=== PATIENT | male | born 1965 | race Caucasian/White ===

== ENCOUNTER → 2017-10-09 09:24 | Outpatient (CLI) | payer OTHER, SELFPAY ==
[2017-10-09 12:14] LABS: Hemoglobin A1c 8.3 % (4.2-6.3)
[2017-10-09 12:17] LABS: Cholesterol 164 mg/dL (200); Glucose 186 mg/dL (74-106); High Density Lipoprotein 34 mg/dL; Triglycerides 255 mg/dL; Very Low Density Lipoprotein 51 mg/dL (5-40)
== END ==
PROVIDERS: Family Provider Family Medicine; PCP Family Medicine; Visit Provider Family Medicine
DX: E11.9 Type 2 diabetes mellitus without complications (principal); E78.5 Hyperlipidemia, unspecified
CPT/HCPCS: 36415; 80061; 82947; 83036

== ENCOUNTER → 2018-10-15 09:10 | Outpatient (CLI) | payer OTHER, SELFPAY ==
[2017-01-03 11:29] VITALS: BMI 31.9
[2018-10-15 10:24] LABS: Hemoglobin A1c 9.6 % (4.2-6.3)
[2018-10-15 10:33] LABS: Anion Gap 10 (5-15); BUN 14 mg/dL (7-18); BUN/Creat Ratio 14.9 RATIO (10-20); Calcium,Total 8.5 mg/dL (8.5-10.1); Chloride 104 mmol/L (98-107); Cholesterol 179 mg/dL (200); Creatinine, Serum 0.94 mg/dL (0.70-1.30); EST Glomerular Filtration Rate 89 mL/min (>60); Est Glom Filt Rate - Afr Amer 107 mL/min (>60); Glucose 245 mg/dL (74-106); High Density Lipoprotein 35 mg/dL; PSA,Total - Annual Screen 0.18 ng/mL (0.00-4.00); Potassium 3.9 mmol/L (3.5-5.1); Sodium Level 138 mmol/L (136-145); Triglycerides 225 mg/dL; Very Low Density Lipoprotein 45 mg/dL (5-40)
== END ==
PROVIDERS: Family Provider Family Medicine; PCP Family Medicine; Referring Provider Family Medicine; Visit Provider Family Medicine
DX: E78.5 Hyperlipidemia, unspecified (principal); Z12.5 Encounter for screening for malignant neoplasm of prostate; E11.9 Type 2 diabetes mellitus without complications
CPT/HCPCS: 36415; 80048; 80061; 83036; 84153; G0103

== ENCOUNTER → 2019-11-16 09:31 | Outpatient (CLI) | payer OTHER, SELFPAY ==
[2017-01-03 11:29] VITALS: BMI 31.9
[2019-11-16 12:47] LABS: ALB/GLOB Ratio 0.9 RATIO (0.9-2.4); AST(SGOT) 40 U/L (15-37); Alanine Aminotransfer ALT/SGPT 79 U/L (16-61); Albumin, Serum 3.8 g/dL (3.2-5.0); Alkaline Phosphatase 59 U/L (45-117); Anion Gap 7 (5-15); BUN 15 mg/dL (7-18); Calcium,Total 8.8 mg/dL (8.5-10.1); Chloride 105 mmol/L (98-107); Cholesterol 195 mg/dL (200); EST Glomerular Filtration Rate 82 mL/min (>60); Est Glom Filt Rate - Afr Amer 100 mL/min (>60); Globulin 4.3 g/dL (2.2-4.2); Glucose 246 mg/dL (74-106); High Density Lipoprotein 33 mg/dL; Protein, Total 8.1 g/dL (6.4-8.2); Sodium Level 138 mmol/L (136-145); Triglycerides 229 mg/dL; Very Low Density Lipoprotein 46 mg/dL (5-40)
== END ==
PROVIDERS: PCP Family Medicine; Referring Provider Family Medicine; Visit Provider Family Medicine
DX: E11.9 Type 2 diabetes mellitus without complications (principal)
CPT/HCPCS: 36415; 80053; 80061; 82043; 82570

== ENCOUNTER → 2020-06-21 16:31 | Outpatient (CLI) | payer OTHER, SELFPAY ==
[2017-01-03 11:29] VITALS: BMI 31.9
== END ==
PROVIDERS: PCP Family Medicine; Referring Provider Family Medicine; Visit Provider Family Medicine
DX: B34.9 Viral infection, unspecified (principal)
CPT/HCPCS: 87635; U0003

== ENCOUNTER 2020-06-25 12:19 | Inpatient (IN) | payer OTHER, SELFPAY ==
[2020-06-25] VITALS (15 sets, daily range): BP systolic 111–140; BP diastolic 69–80; PULSE 75–106; RESP 16–21; TEMP 36.8–37.2; O2SAT 87–94; BMI 33.2; BMI 30.6
--- NOTE | 2020-06-25 12:28 | RAD_ITS ---
STUDY: X-RAY CHEST REASON FOR EXAM: Male, 55 years old. Cough, SOB -- tested positive for COVID -- illness x 1 week 2 days TECHNIQUE: AP upright portable view. COMPARISON: None. FINDINGS: Mild pulmonary hypoinflation. Minimal interstitial infiltrates in both lungs, right more than left. There is no demonstrated pleural abnormality. Normal size heart. Normal mediastinum and nehemias. Normal visualized pulmonary arteries. Normal visualized aortic arch and descending thoracic aorta. Normal visualized thoracic spine. Normal visualized ribs, clavicles, and shoulders. There is no demonstrated abnormality of the visualized soft tissue structures of the upper abdomen. RAD/Chest 1 View (Portable) IMPRESSION: Interstitial pneumonitis in both lungs are nonspecific. They are suspicious for viral pneumonia including Covid-19. Electronically Signed: Eduardo Blankenship MD at 13:10 EST , Service support ,
--- NOTE | 2020-06-25 12:28 | EKG12_ITS ---
Test Reason : SOB Blood Pressure : / mmHG Vent. Rate : 106 BPM Atrial Rate : 106 BPM P-R Int : 144 ms QRS Dur : 086 ms QT Int : 340 ms P-R-T Axes : 022 -33 005 degrees QTc Int : 451 ms Sinus tachycardia Possible Left atrial enlargement Left axis deviation Abnormal ECG Confirmed by GABY WINCHESTER, DEMOND ([id number]), slot editor LUIS CARLOS TANNER ([id number]) on 06/26/2020 2:02:33 PM Referred By: Confirmed By:DEMOND GRIFFIN MD
--- NOTE | 2020-06-25 12:30 | ED.VIS.GEN ---
History of Present Illness Chief Complaint: Shortness of Breath Detail of Chief Complaint: And feeling terrible Informant: Patient Onset: Days Context: Sudden Onset Timing: Continuous Quality: Upper respiratory symptoms, decreased appetite, malaise, myalgias Location: Generalized Current Severity: Moderate Maximum Severity: Severe Worsened by: Dyspnea on exertion, positive Covid test Relieved by: Nothing Associated Symptoms: Elevated blood sugar Narrative: Patient is a 55-year-old male with history of type 2 diabetes who is only taking one of his oral hypoglycemic pills once daily versus twice daily as prescribed. He states he feels terrible reason he does not take them. He does report subjective fevers, intermittent mild headache, myalgias and arthralgias, nausea, shortness of breath and cough. Cough is productive of clear sputum. The onset of his symptoms was 10 days ago. His Covid test was performed on Friday. He received results yesterday and was informed that his test is positive. His is positive for Covid. She is doing better. He denies rhinorrhea, congestion, postnasal drainage or sore throat. He denies rash. He states he has no energy. He does report orthostatic symptoms. He does report feeling dry mouth. He states his blood sugar has ranged between 150 and 225. This is not significantly higher than normal. Prior similar symptoms: Yes Recent Illness/Hospitalization: Yes - COVID-19 - Past Medical History (1) History of type 2 diabetes mellitus Status: Acute (2) COVID-19 virus detected Status: Acute Past Medical History - Allergies and Home Meds Allergies/Adverse Reactions: Allergies No Known Allergies Allergy (Verified 06/25/20 12:23) Primary Care Physician: Ankush Deluna MD [Primary Care Provider] - Prior records reviewed: Yes Surgical History: noncontributory Lives: Spouse/ Significant Other Smoking Status: Former smoker Alcohol: Rare Drugs: None Review of Systems General: Reports: Fever, Malaise, Subjective. Denies: Sweats, Weight loss Eyes: Reports: - - He denies photophobia.. Denies: Visual changes - bilaterally, Blurred Vision - bilaterally, Diplopia ENT: Denies: Bilateral ear pain, Rhinorrhea, Sore throat Cardiovascular: Denies: Chest pain, Palpitations Respiratory: Reports: Dyspnea, Cough, Sputum, Dyspnea on exertion. Denies: Orthopnea, Paroxysmal nocturnal dyspnea Gastrointestinal: Reports: Nausea. Denies: Abdominal pain, Vomiting, Diarrhea, Constipation, Melena, Hematochezia, -, - Genitourinary: Denies: Dysuria, Hematuria, Frequency Musculoskeletal: Reports: Myalgias, Arthralgias. Denies: Neck pain, Back pain, Swelling, Extremity Pain, -, - Skin: Denies: Rash, Wounds Neurological: Reports: Headache, Weakness. Denies: Parasthesia, Numbness Endocrine: Denies: Polyuria, Polydipsia Physical Exam Vital Signs/Narrative: Vital Signs Temp Pulse Resp BP Pulse Ox 06/25/20 12:21 98.2 F 105 H 20 H 140/78 H 88 Inital Vital Signs reviewed: Yes General: Well nourished, Well developed, No Acute Distress, - - He appears ill but not toxic. Head: Normocephalic, Atraumatic Eyes: Perrl, EOMI. Negative for: Pale conjunctiva, Scleral icterus ENT: No rhinorrhea, TM's clear, Dry mucous membranes Neck: Supple, Nontender, No lymphadenopathy, No JVD Cardiovascular: Regular rhythm, No murmurs, Normal S1, Normal S2, Tachycardia Respiratory: No distress, Chest nontender. Negative for: CTA bilaterally - There is adventitial breath sounds noted bilaterally. There is no expiratory wheezing. Abdomen: Soft, Nontender, Nondistended, Normal bowel sounds Rectal: Deferred Back: Nontender, Normal Inspection. Negative for: CVA tenderness Extremities: Nontender, No edema Skin: Normal color, No rash, No Trauma. Negative for: Cyanosis, Diaphoresis, Jaundice Neurological: Alert, Oriented x3, Cranial nerves II-XII grossly intact, Normal Strength, Normal Sensation Psychological: Depressed Diagnostic/Tx/Re-eval Chest X-Ray - ED: 1 View, Read by ED Physician, Read by Radiologist, Heart, Mediastinum, Right Infiltrate, Left Infiltrate Impressions Chest X-Ray 06/25/20 12:28 IMPRESSION: Interstitial pneumonitis in both lungs are nonspecific. They are suspicious for viral pneumonia including Covid-19. Electronically Signed: Eduardo Blankenship MD at 13:10 EST , Service support , 06/25/20 12:28 Chest 1 View (Portable) [RAD] Stat Laboratory Results 06/25/20 06/25/20 12:35 12:35 WBC 9.4 RBC 5.42 Hgb 16.2 Hct 50.8 MCV 93.7 MCH 29.9 MCHC 31.9 L RDW Std Deviation 43.8 RDW Coeff of Antoine 12.7 Plt Count 248 MPV 11.0 Immature Gran % (Auto) 0.700 Neut % (Auto) 76.6 H Lymph % (Auto) 14.0 L Cook % (Auto) 8.6 Eos % (Auto) 0.0 Baso % (Auto) 0.1 Absolute Neuts (auto) 7.2 Absolute Lymphs (auto) 1.32 Nucleated RBC % 0 Sodium 137 Potassium 3.8 Chloride 100 Carbon Dioxide 30.0 Anion Gap 7 BUN 17 Creatinine 1.18 Estim Creat Clear Calc 69.90 Est GFR (MDRD) Af Amer 82 Est GFR (MDRD) Non-Af 68 BUN/Creatinine Ratio 14.4 Glucose 277 H Calcium 8.9 Total Bilirubin 0.90 AST 40 H ALT 65 H Alkaline Phosphatase 59 Total Protein 8.2 Albumin 3.2 Globulin 5.0 H Albumin/Globulin Ratio 0.6 L - Rhythm Strip Rhythm Strip: Sinus Tach Rate: 110 Ectopy: None - Medical Decision Making Since patient has a positive COVID-19 test and is hypoxic chest x-ray and appropriate blood work was obtained. He did receive 10 mg of Decadron IV push. He was informed he will require admission to the hospital. Patient is hypoxic and all likely due to Covid pneumonia. Chest x-ray was obtained to verify if patient does have infiltrate or not. Basic metabolic panel was obtained to assess glucose since he has history of type 2 diabetes and renal function. Since he reports decreased p.o. intake Patient has bilateral interstitial infiltrate consistent with COVID-19. Since he is hypoxic the hospitalist was paged for admission. Pro calcitonin level is pending. Patient did not receive antibiotics since his Covid test was positive. ED Disposition - Plan for ED Patient: Disposition: Acute Care Hospital [facility] Diagnosis: Pneumonia due to COVID-19 virus, Acute respiratory failure with hypoxia, Hyperglycemia due to type 2 diabetes mellitus Referrals: Ankush Deluna MD [Primary Care Provider] -
[2020-06-25] MEDS: dexAMETHasone 10 MG/ML Vial IV (12:41)
[2020-06-25 12:57] LABS: Absolute Lymphocyte Count 1.32 X10^3/uL (0.83-4.51); Absolute Neutrophil Count 7.2 X10^3/uL (2.0-7.7); Basophil# 0.01 X10^3/uL; Basophil% 0.1 % (0-1); Hematocrit 50.8 % (40-54); Hemoglobin 16.2 g/dL (13.0-16.5); Lymphocyte # 1.32 X10^3/ul (4.0); Mean Corp Hgb Conc 31.9 g/dL (32-36); Mean Corpuscular Hgb 29.9 pg (27.0-32.0); Mean Corpuscular Volume 93.7 fL (80-94); Monocyte# 0.81 X10^3/uL; Monocyte% 8.6 % (0-10); NRBC Flagged by Analyzer 0 % (0-5); Neutrophil # 7.21 X10^3/uL (2.7-7.7); Neutrophil % 76.6 % (47-70); Platelet Count 248 K/mm3 (150-450); RBC Distribution Width CV 12.7 % (11.6-14.6); RBC Distribution Width SD 43.8 fl (35.1-43.9); Red Blood Count 5.42 M/mm3 (4.6-6.2); White Blood Count 9.4 K/mm3 (4.4-11.0)
[2020-06-25 13:11] LABS: ALB/GLOB Ratio 0.6 RATIO (0.9-2.4); AST(SGOT) 40 U/L (15-37); Alanine Aminotransfer ALT/SGPT 65 U/L (16-61); Albumin, Serum 3.2 g/dL (3.2-5.0); Alkaline Phosphatase 59 U/L (45-117); Anion Gap 7 (5-15); BUN 17 mg/dL (7-18); BUN/Creat Ratio 14.4 RATIO (10-20); Calcium,Total 8.9 mg/dL (8.5-10.1); Chloride 100 mmol/L (98-107); Creatinine, Serum 1.18 mg/dL (0.70-1.30); EST Glomerular Filtration Rate 68 mL/min (>60); Est Glom Filt Rate - Afr Amer 82 mL/min (>60); Glucose 277 mg/dL (74-106); Potassium 3.8 mmol/L (3.5-5.1); Protein, Total 8.2 g/dL (6.4-8.2); Sodium Level 137 mmol/L (136-145)
--- NOTE | 2020-06-25 13:20 | HP.PCM_ITS ---
History of Present Illness Date of Admission: 06/25/20 Chief Complaint: shortness of breath The patient is a 55 year old M with a past medical history of type 2 diabetes mellitus was admitted through the ED on 06/25/2020 with complaint of shortness of breath with persistent subjective fever and chills, myalgias and arthralgias, nausea and vomiting and cough as well as chest pain and abdominal pain. Cough productive of clear sputum. Symptoms started about 10 days ago. He was saturating at 88% on room air. He Covid test last Friday and received the results yesterday. His is also positive for Covid. Review of symptoms otherwise negative. Patient is on oral hypoglycemic pills twice daily for his diabetes but has been taking it once daily. On admission, his blood sugar was elevated to 77. Chest x-ray showed gestational pneumonitis in both lungs which were nonspecific and was suspicious for viral pneumonia including COVID-19. Admission, vitals in the ED showed temperature of 98.9 with blood pressure of 135/80, pulse rate of 103 and respiratory rate of 19. He was saturating at 94% on 2 L of oxygen. CBC was unremarkable and BNP was also unremarkable apart from mildly elevated AST and ALT. Dimer was not done. He has been admitted to manage for acute hypoxic respiratory insufficiency due to COVID-19 infection, tach acidosis as well as hyperglycemia due to noncompliance with oral hypoglycemics. [] Past Medical History Allergies No Known Allergies Allergy (Verified 06/25/20 12:23) Home Medications: Ambulatory Orders Medication Instructions Recorded Albuterol Sulfate [Albuterol 2 puff Q4H PRN PRN 06/25/20 Sulfate HFA] Sitagliptin Phos/Metformin HCl 1 tab DAILY 06/25/20 [Janumet 50-1,000 mg Tablet] Surgical History: noncontributory Lives: Spouse/ Significant Other Smoking Status: Never smoker Alcohol: Rare Drugs: None Review of Systems Constitutional: Reports: Anorexia, Chills, Fever, Malaise, Weakness, Fatigue Eyes: Denies: Blurred vision HEENT: Denies: Head Aches, Sinus Congestion, Sinus Drainage Cardiovascular: Denies: Chest Pain, Edema, Heaviness, Light Headedness, Orthopnea, Palpitations Respiratory: Reports: Cough, Shortness of Breath, Shortness of breath at rest, Shortness of breath upon exertion, Sputum production. Denies: Hemoptysis, Pleuritic Pain, Wheezing Gastrointestinal: Denies: Abdominal Pain, Nausea, Vomiting Genitourinary: Denies: Dysuria Musculoskeletal: Denies: Joint Pain, Joint Tenderness Skin: Denies: Rash, Wounds Neurological: Denies: Numbness, Tingling, Focal weakness Psychiatric: Denies: Anxiety, Depression, Homicidal Ideations, Suicidal Ideations Hematologic/ Lymphatic: Denies: Easy Bruising, Easy Bleeding VTE Information - Inpt Only VTE Present on Admission: No VTE Pharm Prophylaxis ordered?: Yes Patient Problems: Active and Suspected Problems History of type 2 diabetes mellitus (Acute) COVID-19 virus detected (Acute) Pneumonia due to COVID-19 virus (Acute) Acute respiratory failure with hypoxia (Acute) Hyperglycemia due to type 2 diabetes mellitus (Acute) - Physical Exam Vitals/I&O's: Vital Signs Temp Pulse Resp BP Pulse Ox 98.9 F 103 H 19 H 135/80 H 94 06/25/20 12:23 06/25/20 12:23 06/25/20 12:23 06/25/20 12:23 06/25/20 12:50 Oxygen Flow Rate (L/min) 2 Oxygen Delivery Method Nasal Cannula Weight: 225 lb Body Mass Index (BMI) 33.2 Finger Stick Blood Glucose 179 General: Alert, Oriented x3, Cooperative, No apparent distress, Lethargic HEENT: Atraumatic, PERRLA, EOMI, Normocephalic Oral: Dry Mucosa Neck: Supple, No JVD, Negative Carotid Bruits Lungs: - - Diminished breath sounds bibasilarly. No wheezes or crackles. 2 L of oxygen. Cardiovascular: Normal S1, Normal S2, No murmurs, Tachycardic Abdomen: Bowel Sounds Present, Soft, Non Tender Extremities: No edema, Capillary Refill Less than 3 Seconds Skin: No rashes, No breakdown Musculoskeletal: No Tenderness to Palpation of Joints or Extremities Lymphatic: No Cervical, Supraclavicular, or Inguinal Adenopathy Neurological: Cranial nerves II-XII grossly intact, Neuro grossly intact, Motor Exam 5/5 strength throughout Psych/Mental Status: Normal Affect, Appropriate, Alert and oriented to time, place, person, mood and affect Laboratory Results 06/25/20 12:35: WBC 9.4, RBC 5.42, Hgb 16.2, Hct 50.8, MCV 93.7, MCH 29.9, MCHC 31.9 L, RDW Std Deviation 43.8, RDW Coeff of Antoine 12.7, Plt Count 248, MPV 11.0, Immature Gran % (Auto) 0.700, Neut % (Auto) 76.6 H, Lymph % (Auto) 14.0 L, Stoddard % (Auto) 8.6, Eos % (Auto) 0.0, Baso % (Auto) 0.1, Absolute Neuts (auto) 7.2, Absolute Lymphs (auto) 1.32, Nucleated RBC % 0 06/25/20 12:35: Sodium 137, Potassium 3.8, Chloride 100, Carbon Dioxide 30.0, Anion Gap 7, BUN 17, Creatinine 1.18, Estim Creat Clear Calc 69.90, Est GFR (MDRD) Af Amer 82, Est GFR (MDRD) Non-Af 68, BUN/Creatinine Ratio 14.4, Glucose 277 H, Calcium 8.9, Total Bilirubin 0.90, AST 40 H, ALT 65 H, Alkaline Phosphatase 59, Total Protein 8.2, Albumin 3.2, Globulin 5.0 H, Albumin/Globulin Ratio 0.6 L 06/25/20 12:35: Lactic Acid Pending 06/25/20 12:35: Procalcitonin Pending Diagnostic Data Chest X-Ray 06/25/20 12:28 IMPRESSION: Interstitial pneumonitis in both lungs are nonspecific. They are suspicious for viral pneumonia including Covid-19. Electronically Signed: Eduardo Blankenship MD at 13:10 EST , Service support , Assessment/Plan All Active Problems History of type 2 diabetes mellitus (Acute) COVID-19 virus detected (Acute) Pneumonia due to COVID-19 virus (Acute) Acute respiratory failure with hypoxia (Acute) Hyperglycemia due to type 2 diabetes mellitus (Acute) 55 y/o admitted with a complaint of shortness of breath and lethargy # Acute hypoxic respiratory insufficiency due to COVID 19 pneumonia * admit patient to Covid floor * Hydrate with IV fluid normal saline at 125 cc/h. * Start on IV Decadron. Start on IV ceftriaxone and azithromycin. * Check sputum culture and urine for strep and Legionella. * Titrate oxygen to maintain saturation above 90%. * Breathing treatments with bronchodilators. * Consult pulmonology on consult ID for decision to be made about whether patient will benefit from remdesivir and convalescent plasma. * D-dimer elevated at 0.97 and patient also complained of chest pain. Will get CT of the chest to rule out PE. * #COVID-19 pneumonia: Management as above. #sepsis due to COVID-19 infection: * Patient is tachycardic and tachypneic. * WBC 9.4 but procalcitonin is elevated at 0.17. * Will start on IV ceftriaxone and azithromycin. * Sputum culture ordered and urine for strep and Legionella also ordered. * #lactic acidosis: * Lactic acid elevated at 2.5. * Likely due to hypoxia. * Hydrate with IV fluids and trend lactic acid. * #Type 2 diabetes mellitus with hyperglycemia * glucose was 277 on admission. He admits to not being compliant with his diabetes medications like he should be taking it. He is on Janumet. * To Janumet. Start insulin sliding scale. Checks AC at bedtime. * Check A1c. * DVT prophylaxis: Lovenox CODE STATUS: Full code * Patient counseled extensively about different types of CODE STATUS including full code, DNR CCA and DNR CCA. Patient elects to be full code. * Total [id number] time 16 minutes. Inpatient E&M: 74651 Init Hosp L3 Procedures: 67495 Advncd Care Plan 30 Min
[2020-06-25 13:22] LABS: Lactic Acid 2.5 mmol/L (0.4-1.9)
[2020-06-25 13:24] LABS: Procalcitonin 0.17 ng/mL (0.00-0.09)
[2020-06-25 13:38] LABS: D-Dimer Quantitative (DVT/PE) 0.97 FEU/ug/m (0.27-0.49)
--- NOTE | 2020-06-25 13:45 | NURSING ---
ms2 koram pooja interstitial pneumonia due to covid, resp failure
--- NOTE | 2020-06-25 13:49 | CT_ITS ---
STUDY: CTA CHEST REASON FOR EXAM: Male, 55 years old. COVID RADIATION DOSAGE (If Supplied By Facility): CTDIvol = ( 13.60 ) mGy, DLP = ( 410.45 ) mGycm TECHNIQUE: The examination was performed with the intravenous administration of IV 100mL Isovue-370. Post-processing of the angiographic images was performed, with multiplanar reformation and 3D reconstruction. Individualized dose optimization techniques were used for this CT. COMPARISON: None. FINDINGS: Normal enhancement of the main pulmonary artery and right and left pulmonary arteries. Normal enhancement of the bilateral peripheral pulmonary arteries. There is no demonstrated pulmonary embolism. Normal thoracic aorta and visualized great vessels. There is no demonstrated aortic dissection. Normal heart and pericardium. Normal mediastinum. Normal hilar regions. There are regional areas of groundglass opacity some of which are rounded with associated intralobular septal thickening. Subpleural opacity along the posterior right upper lobe on image 115 of series 2 in the bilateral lower lobes are more compatible with atelectasis rather than organizing pneumonia. Normal chest wall structures. Mild degenerative changes of the thoracic spine without destructive bony process. There is diffuse fatty infiltration of the liver. CT/CTA Chest W/WO Contrast IMPRESSION: 1. No central or segmental pulmonary embolism. 2. Groundglass commonly reported imaging features of COVID-19 pneumonia are present. Other processes such as influenza pneumonia, organizing pneumonia, drug toxicity and connective tissue disease can cause a similar imaging pattern. Electronically Signed: Nolan Fernandes MD (Brooks) at 15:19 EST , Service support ,
[2020-06-25 14:46] LABS: Allen Test Positive; Base Excess 1 mmol/L (-2 to +2); Bicarbonate 25.4 mmol/L (22-26); Blood Gas Specimen Type ART; O2 Delivery Device Cannula; PO2 78 mmHG (75-100); SITE L Radial; SO2 96 % (95-99); Total Carbon Dioxide 27 mmol/L; pCO2 38.2 mmHg (35-45); pH 7.43 (7.35-7.45)
[2020-06-25] MEDS: 0.9% Normal Saline 1,000 ML 150 ML IV (16:22)
[2020-06-25 16:23] LABS: CPK Total, Creatine Kinase 55 U/L (39-308); LDH 319 U/L (87-241)
[2020-06-25] MEDS: Ceftriaxone 1 GM/50 ML BAG IV (16:24)
[2020-06-25 16:27] LABS: Hemoglobin A1c 10.3 % (3.8-5.6)
[2020-06-25 16:30] LABS: BNP,B-Type NATRIURETIC PEPTIDE 16.4 pg/mL (0-100)
[2020-06-25 16:52] LABS: Reflex Lactate? Y
[2020-06-25] MEDS: Insulin Lispro 100 UNIT/ML INSULN.PEN SC ×2 (16:55→21:03)
[2020-06-25 17:56] LABS: Bedside Glucose 285 mg/dL (70-110)
[2020-06-25 18:29] LABS: Lactic Acid 1.8 mmol/L (0.4-1.9)
[2020-06-25] MEDS: Enoxaparin 40 MG/0.4 ML Syringe SC (20:52)
[2020-06-25] MEDS: Famotidine 20 MG Tablet PO (20:52)
[2020-06-25 21:16] LABS: Bedside Glucose 329 mg/dL (70-110)
[2020-06-26] VITALS (10 sets, daily range): BP systolic 118–131; BP diastolic 69–76; PULSE 68–91; RESP 18–22; TEMP 36.2–36.6; O2SAT 92–94
[2020-06-26] MEDS: 0.9% Normal Saline 1,000 ML 150 ML IV (02:56)
[2020-06-26 06:17] LABS: Hematocrit 46.5 % (40-54); Hemoglobin 14.7 g/dL (13.0-16.5); Mean Corp Hgb Conc 31.6 g/dL (32-36); Mean Corpuscular Hgb 29.8 pg (27.0-32.0); Mean Corpuscular Volume 94.3 fL (80-94); Mean Platelet Vol. 11.5 fl (6.2-12.0); Platelet Count 267 K/mm3 (150-450); RBC Distribution Width CV 12.4 % (11.6-14.6); RBC Distribution Width SD 43.5 fl (35.1-43.9); Red Blood Count 4.93 M/mm3 (4.6-6.2); White Blood Count 8.1 K/mm3 (4.4-11.0)
[2020-06-26] MEDS: Insulin Lispro 100 UNIT/ML INSULN.PEN SC ×4 (06:42→21:07)
[2020-06-26 06:44] LABS: ALB/GLOB Ratio 0.7 RATIO (0.9-2.4); AST(SGOT) 30 U/L (15-37); Alanine Aminotransfer ALT/SGPT 53 U/L (16-61); Albumin, Serum 2.7 g/dL (3.2-5.0); Alkaline Phosphatase 49 U/L (45-117); Anion Gap 8 (5-15); BUN 19 mg/dL (7-18); BUN/Creat Ratio 21.9 RATIO (10-20); Calcium,Total 7.9 mg/dL (8.5-10.1); Chloride 105 mmol/L (98-107); Creatinine, Serum 0.87 mg/dL (0.70-1.30); EST Glomerular Filtration Rate 97 mL/min (>60); Est Glom Filt Rate - Afr Amer 117 mL/min (>60); Estimated Creatinine Clearance 94.81 ml/min; Globulin 3.9 g/dL (2.2-4.2); Glucose 239 mg/dL (74-106); Potassium 4.1 mmol/L (3.5-5.1); Protein, Total 6.6 g/dL (6.4-8.2); Sodium Level 139 mmol/L (136-145)
[2020-06-26 06:55] LABS: Bedside Glucose 251 mg/dL (70-110)
--- NOTE | 2020-06-26 07:06 | PN_ITS ---
Patient Problems: Active and Suspected Problems History of type 2 diabetes mellitus (Acute) COVID-19 virus detected (Acute) Pneumonia due to COVID-19 virus (Acute) Acute respiratory failure with hypoxia (Acute) Hyperglycemia due to type 2 diabetes mellitus (Acute) Reason for Visit: Follow-up on acute hypoxic respiratory insufficiency/acute COVID-19 pneumonia Subjective: Patient was seen and examined. He feels improved. Denies any fever or chills. He is on 5 L of oxygen. Objective: Physical exam: General: Alert, Oriented x3, Cooperative, No apparent distress, on 5 L of oxygen HEENT: Atraumatic, PERRLA, EOMI, Normocephalic Oral: Dry Mucosa Neck: Supple, No JVD, Negative Carotid Bruits Lungs: - - Diminished breath sounds bibasilarly. No wheezes or crackles. 2 L of oxygen. Cardiovascular: Normal S1, Normal S2, No murmurs, Tachycardic Abdomen: Bowel Sounds Present, Soft, Non Tender Extremities: No edema, Capillary Refill Less than 3 Seconds Skin: No rashes, No breakdown Musculoskeletal: No Tenderness to Palpation of Joints or Extremities Lymphatic: No Cervical, Supraclavicular, or Inguinal Adenopathy Neurological: Cranial nerves II-XII grossly intact, Neuro grossly intact, Motor Exam 5/5 strength throughout Psych/Mental Status: Normal Affect, Appropriate, Alert and oriented to time, place, person, mood and affect Vitals/I&O's: Vital Signs Temp Pulse Resp BP Pulse Ox 97.7 F L 70 18 123/74 H 92 06/26/20 02:47 06/26/20 03:18 06/26/20 02:47 06/26/20 02:47 06/26/20 02:47 Oxygen Flow Rate (L/min) 5 Oxygen Delivery Method Nasal Cannula Weight: 93.984 kg Body Mass Index (BMI) 30.6 Finger Stick Blood Glucose 179 Intake and Output for Last 24 Hours 06/24/20 06/25/20 06/26/20 23:59 23:59 23:59 Intake Total 1197.5 / 1197.5 597.5 / 597.5 Output Total 1100 / 1100 Balance 1197.5 / 1197.5 -502.5 / -502.5 Microbiology Past 72 Hours 06/25/20 21:10 Mucosa - Nasopharyngeal Respiratory Panel (PCR) - Final 06/25/20 20:45 Urine, Clean Catch Legionella Antigen - Final 06/25/20 20:45 Urine, Clean Catch Streptococcus pneumoniae Antigen (M - Final Laboratory Results 06/25/20 12:35: WBC 9.4, RBC 5.42, Hgb 16.2, Hct 50.8, MCV 93.7, MCH 29.9, MCHC 31.9 L, RDW Std Deviation 43.8, RDW Coeff of Antoine 12.7, Plt Count 248, MPV 11.0, Immature Gran % (Auto) 0.700, Neut % (Auto) 76.6 H, Lymph % (Auto) 14.0 L, [place] Zandt % (Auto) 8.6, Eos % (Auto) 0.0, Baso % (Auto) 0.1, Absolute Neuts (auto) 7.2, Absolute Lymphs (auto) 1.32, Nucleated RBC % 0 06/25/20 12:35: Sodium 137, Potassium 3.8, Chloride 100, Carbon Dioxide 30.0, Anion Gap 7, BUN 17, Creatinine 1.18, Estim Creat Clear Calc 69.90, Est GFR (MDRD) Af Amer 82, Est GFR (MDRD) Non-Af 68, BUN/Creatinine Ratio 14.4, Glucose 277 H, Calcium 8.9, Total Bilirubin 0.90, AST 40 H, ALT 65 H, Alkaline Phosphatase 59, Total Protein 8.2, Albumin 3.2, Globulin 5.0 H, Albumin/Globulin Ratio 0.6 L 06/25/20 12:35: Lactic Acid 2.5 H* 06/25/20 12:35: Procalcitonin 0.17 H 06/25/20 12:35: D-Dimer Quant (PE/DVT) 0.97 H* 06/25/20 12:35: Lactate Dehydrogenase 319 H, Total Creatine Kinase 55 06/25/20 12:35: Hemoglobin A1c 10.3 H 06/25/20 12:35: B-Natriuretic Peptide 16.4 06/25/20 14:40: Specimen Type ART, Sample Site L Radial, pH 7.43, Bicarbonate Actual 25.4, Total CO2 27, Base Excess 1, O2 Saturation 96, ABG pCO2 38.2, ABG pO2 78, Fernando Test Positive, O2 Delivery Device Cannula, Liter Flow 5.0 06/25/20 16:30: POC Glucose 285 H 06/25/20 17:51: Lactic Acid 1.8 06/25/20 21:03: POC Glucose 329 H 06/26/20 05:30: WBC 8.1, RBC 4.93, Hgb 14.7, Hct 46.5, MCV 94.3 H, MCH 29.8, MCHC 31.6 L, RDW Std Deviation 43.5, RDW Coeff of Antoine 12.4, Plt Count 267, MPV 11.5 06/26/20 05:30: Sodium 139, Potassium 4.1, Chloride 105, Carbon Dioxide 26.0, Anion Gap 8, BUN 19 H, Creatinine 0.87, Estim Creat Clear Calc 94.81, Est GFR (MDRD) Af Amer 117, Est GFR (MDRD) Non-Af 97, BUN/Creatinine Ratio 21.9 H, Glucose 239 H, Calcium 7.9 L, Total Bilirubin 0.60, AST 30, ALT 53, Alkaline Phosphatase 49, Total Protein 6.6, Albumin 2.7 L, Globulin 3.9, Albumin/Globulin Ratio 0.7 L 06/26/20 05:30: Blood Type A POSITIVE 06/26/20 06:41: POC Glucose 251 H Current Medications Acetaminophen (Acetaminophen 325 Mg Tablet) 650 mg PO Q6H PRN PRN PRN Reason: Pain Score 1-10/Temp > 100.7 F Dexamethasone Sodium Phosphate (Dexamethasone 10 Mg/Ml Vial) 6 mg IV DAILY [facility] Dextrose (Dextrose 50%-Water 25 Gm/50 Ml Disp.Syrin) 0 gm IV X1 PRN; Protocol PRN Reason: Hypoglycemia Enoxaparin Sodium (Enoxaparin 40 Mg/0.4 Ml Syringe) 40 mg SC BID [facility] Last Admin: 06/25/20 20:52 Dose: 40 mg Documented by: Famotidine (Famotidine 20 Mg Tablet) 20 mg PO BID [facility] Last Admin: 06/25/20 20:52 Dose: 20 mg Documented by: Glucagon (Glucagon 1 Mg/Ml Syringe) 1 mg IM .X1 PRN PRN Reason: Hypoglycemia Guaifenesin (Guaifenesin 10 Ml Udc (200mg/10ml)) 20 ml PO Q4H PRN PRN PRN Reason: COUGH Sodium Chloride () 1,000 mls @ 150 mls/hr IV .Q6H40M [facility] Stop: 06/26/20 10:39 Last Admin: 06/26/20 02:56 Dose: 150 mls/hr Documented by: Ceftriaxone Sodium (Rocephin) 1 gm in 50 mls @ 100 mls/hr IV Q24 JERAMY Last Infusion: 06/25/20 17:00 Dose: Infused Documented by: Azithromycin 500 mg/ Dextrose 255 mls @ 250 mls/hr IV Q24 [facility] Last Infusion: 06/25/20 18:12 Dose: Infused Documented by: Remdesivir 100 mg/ Sodium (Chloride) 250 mls @ 125 mls/hr IV Q24H [facility]; Protocol Stop: 06/29/20 21:59 Insulin Human Lispro (Insulin Lispro 100 Unit/Ml Insuln.Pen) 0 unit SC ACHS [facility]; Protocol Last Admin: 06/26/20 06:42 Dose: 6 u Documented by: Nitroglycerin (Nitroglycerin (Inpatient Use) 0.4 Mg Tab.Subl) 0.4 mg SUBLINGUAL Q5M PRN PRN Reason: CARDIAC/CHEST PAIN Ondansetron HCl (Ondansetron 4 Mg/2 Ml Vial) 4 mg IV Q8H PRN PRN PRN Reason: NAUSEA/VOMITING Sodium Chloride (0.9% Saline Lock 10 Ml Syringe) 10 - 40 ml IV UD PRN PRN Reason: SALINE FLUSH STROKE Vital Signs/Narrative: Vital Signs Pulse 06/26/20 03:18 70 Medical Necessity - Tobacco Use Smoking Status: Former smoker Tobacco Use: Cigarettes Assessment/Plan All Active Problems History of type 2 diabetes mellitus (Acute) COVID-19 virus detected (Acute) Pneumonia due to COVID-19 virus (Acute) Acute respiratory failure with hypoxia (Acute) Hyperglycemia due to type 2 diabetes mellitus (Acute) 1. Acute hypoxic respiratory insufficiency secondary to COVID-19 pneumonia Patient is on 5 L of oxygen, CTA of the chest is negative for acute PE; showed groundglass opacity. Continue with breathing treatments, PO steroids, encourage use of incentive spirometer. Wean off oxygen for SPO2 more than 94% 2. Severe sepsis secondary to acute COVID-19 pneumonia with hypoxia, present on admission, worsening Sputum cultures are pending. Respiratory panel is negative. Urine Legionella and streptococcal antigen negative. Patient is currently on p.o. dexamethasone. Started also on remdesivir ID and pulmonary following 3. Type II DM, blood sugars are uncontrolled secondary to steroids Off Janumet, will continue with blood glucose checks with insulin sliding scale Increase Lantus to 20 units nightly 4. DVT prophylaxis Lovenox subcu Inpatient E&M: 28595 Subs Hosp L2
[2020-06-26] MEDS: Ceftriaxone 1 GM/50 ML BAG IV (09:14)
[2020-06-26] MEDS: Enoxaparin 40 MG/0.4 ML Syringe SC ×2 (09:16→21:08)
[2020-06-26] MEDS: Famotidine 20 MG Tablet PO ×2 (09:16→21:08)
[2020-06-26] MEDS: dexAMETHasone 10 MG/ML Vial 6 MG IV (09:16)
[2020-06-26 11:50] LABS: Bedside Glucose 369 mg/dL (70-110)
--- NOTE | 2020-06-26 15:00 | CASEMGMT ---
RN CM called patient for initial transition planning/care coordination assessment. RN CM introduced self and role at [facility]. Patient is alert and oriented. Patient willing to participate in assessment and is able to answer all questions appropriately. Care providers, pharmacy, and demographics verified. Patient wishes to discharge home, denies need for home health at this time. Patient states he has no further needs or concerns at this time. CM to follow for discharge planning needs that may arise. PCP: Regi Specialists: none Preferred Pharmacy: porsha Wagner with [facility] at discharge Insurance: [employer] Prescription Benefit: yes Living Will/HPOA: yes, [place]: Living Arrangements: Ptietn lives with and 2 sons in one story home with 2 steps to enter. Patient states he is independent at home. Patient states and sons isolating at home. Patient states they have someone who could slat pickler supplies and groceries for them. Transportation: , self DME/HHC: Patient denies DME at home. Would like [facility] for DME. Disposition Plan: Patient to discharge home with family support and follow-up plans in place. Sheryl SANDERSON, RN, CM
--- NOTE | 2020-06-26 15:58 | CON.PCM_ITS ---
Problem List (1) History of type 2 diabetes mellitus Status: Acute (2) COVID-19 virus detected Status: Acute (3) Pneumonia due to COVID-19 virus Status: Acute (4) Hyperglycemia due to type 2 diabetes mellitus Status: Acute Qualifiers: Diabetes mellitus nursing home insulin use: without nursing home use Qualified Code(s): E11.65 - Type 2 diabetes mellitus with hyperglycemia Reason for Consult Date of Consultation: 06/26/20 Reason for Consultation: COVID-19 pneumonia History of Present Illness: The patient is a 55 year old M, with past medical history listed below, who presented [facility] 06/25/2020 secondary to progressive shor tness of breath and body aches. Patient reportedly reports a 1 week history of subjective fever, intermittent headache, myalgias, arthralgias, nausea, shortness of breath and cough. Patient states he is producing clear sputum with his cough and estimates symptoms between 7 and 10 days ago. Patient and his are both testing positive for COVID-19. Patient denied any rhinorrhea, sore throat, rash or orthostatic symptoms. Patient does report he has not been taking his oral hypoglycemic medications as prescribed secondary to decreased p.o. intake. In the ER, patient was noted to be afebrile, but tachycardic. Patient had a chest x-ray showing interstitial pneumonitis, but no leukocytosis. Patient did appear to be somewhat dehydrated with a hemoglobin of 16.2 and a creatinine of 1.18. Liver function studies were within normal limits. Patient was given Decadron and supplemental oxygen. Patient was transferred to the cohort unit for further evaluation. Since admission to the hospital, patient reports he is subjectively improved compared to previous. Patient is still requiring 5 L nasal cannula to maintain saturations. Patient states he has never required supplemental oxygen previously. Patient does state that he has a 20+ pack year smoking history, but is never been evaluated for COPD previously. Patient is unclear on his control of diabetes, but readily admits that he does not take his meds as I should. Patient has not been on steroids in the past and know what effect these will have put with him. Review of systems otherwise negative from a constitutional, HEENT, respiratory, cardiovascular, GI, genitourinary, musculoskeletal, skin, neurologic, psychiatric and hematologic system unless stated above. Past Medical History Allergies No Known Allergies Allergy (Verified 06/25/20 12:23) Home Medications: Ambulatory Orders Medication Instructions Recorded Albuterol Sulfate [Albuterol 2 puff Q4H PRN PRN 06/25/20 Sulfate HFA] Sitagliptin Phos/Metformin HCl 1 tab DAILY 06/25/20 [Janumet 50-1,000 mg Tablet] Surgical History: noncontributory Lives: Spouse/ Significant Other Smoking Status: Former smoker Tobacco Use: Cigarettes Alcohol: Rare Drugs: None Review of Systems Comment: See HPI Patient Problems: Active and Suspected Problems History of type 2 diabetes mellitus (Acute) COVID-19 virus detected (Acute) Pneumonia due to COVID-19 virus (Acute) Acute respiratory failure with hypoxia (Acute) Hyperglycemia due to type 2 diabetes mellitus (Acute) Objective: All imaging was personally reviewed. CTA of the chest showed no acute PE, but did have bilateral groundglass opacities. Patient has never had an echocardiogram or pulmonary function test at [facility] that I can find in the computer. - Physical Exam Vitals/I&O's: Vital Signs Temp Pulse Resp BP Pulse Ox 36.5 C L 91 18 119/69 92 06/26/20 09:25 06/26/20 09:59 06/26/20 09:25 06/26/20 09:25 06/26/20 09:25 Oxygen Flow Rate (L/min) 5 Oxygen Delivery Method Nasal Cannula Weight: 93.984 kg Body Mass Index (BMI) 30.6 Finger Stick Blood Glucose 179 Intake and Output for Last 24 Hours 06/24/20 06/25/20 06/26/20 23:59 23:59 23:59 Intake Total 1197.5 / 1197.5 2152.5 / 2152.5 Output Total 1100 / 1100 Balance 1197.5 / 1197.5 1052.5 / 1052.5 General: Alert, Oriented x3, Cooperative, No apparent distress, Well developed, Well nourished, - - Mild conversational dyspnea. HEENT: Atraumatic, PERRLA, EOMI, Normocephalic, - - Slight scleral injection without icterus Oral: Moist Mucosa, No Gingival or Mucosal Lesions/ Ulcerations Neck: Supple, No JVD, No Nodes, Trachea Midline Lungs: No rhonchi, No rales, Diminished, Wheezes Cardiovascular: Regular rate, Regular Rhythm, Normal S1, Normal S2, No murmurs, No rub noted, No Gallop Abdomen: Bowel Sounds Present, Soft, Non Tender, Non-Distended, Obese Extremities: No clubbing, No cyanosis, No edema, Capillary Refill Less than 3 Seconds Skin: No rashes, No breakdown Musculoskeletal: No Tenderness to Palpation of Joints or Extremities Lymphatic: No Cervical, Supraclavicular, or Inguinal Adenopathy Neurological: Cranial nerves II-XII grossly intact, Neuro grossly intact, Motor Exam 5/5 strength throughout Psych/Mental Status: Alert and oriented to time, place, person, mood and affect Microbiology Past 72 Hours 06/26/20 06:45 Sputum, Expectorated/Coughed Gram Stain - Final 06/25/20 21:10 Mucosa - Nasopharyngeal Respiratory Panel (PCR) - Final 06/25/20 20:45 Urine, Clean Catch Legionella Antigen - Final 06/25/20 20:45 Urine, Clean Catch Streptococcus pneumoniae Antigen (M - Final Laboratory Results 06/25/20 12:35: Lactate Dehydrogenase 319 H, Total Creatine Kinase 55 06/25/20 12:35: Hemoglobin A1c 10.3 H 06/25/20 12:35: B-Natriuretic Peptide 16.4 06/25/20 16:30: POC Glucose 285 H 06/25/20 17:51: Lactic Acid 1.8 06/25/20 21:03: POC Glucose 329 H 06/26/20 05:30: WBC 8.1, RBC 4.93, Hgb 14.7, Hct 46.5, MCV 94.3 H, MCH 29.8, MCHC 31.6 L, RDW Std Deviation 43.5, RDW Coeff of Antoine 12.4, Plt Count 267, MPV 11.5 06/26/20 05:30: Sodium 139, Potassium 4.1, Chloride 105, Carbon Dioxide 26.0, Anion Gap 8, BUN 19 H, Creatinine 0.87, Estim Creat Clear Calc 94.81, Est GFR (MDRD) Af Amer 117, Est GFR (MDRD) Non-Af 97, BUN/Creatinine Ratio 21.9 H, Glucose 239 H, Calcium 7.9 L, Total Bilirubin 0.60, AST 30, ALT 53, Alkaline Phosphatase 49, Total Protein 6.6, Albumin 2.7 L, Globulin 3.9, Albumin/Globulin Ratio 0.7 L 06/26/20 05:30: Blood Type A POSITIVE 06/26/20 06:41: POC Glucose 251 H 06/26/20 11:03: POC Glucose 369 H Current Medications Acetaminophen (Acetaminophen 325 Mg Tablet) 650 mg PO Q6H PRN PRN PRN Reason: Pain Score 1-10/Temp > 100.7 F Dexamethasone (Dexamethasone 4 Mg Tablet) 6 mg PO DAILY@0800 [facility] Stop: 07/04/20 08:01 Dextrose (Dextrose 50%-Water 25 Gm/50 Ml Disp.Syrin) 0 gm IV X1 PRN; Protocol PRN Reason: Hypoglycemia Enoxaparin Sodium (Enoxaparin 40 Mg/0.4 Ml Syringe) 40 mg SC BID [facility] Last Admin: 06/26/20 09:16 Dose: 40 mg Documented by: Famotidine (Famotidine 20 Mg Tablet) 20 mg PO BID [facility] Last Admin: 06/26/20 09:16 Dose: 20 mg Documented by: Glucagon (Glucagon 1 Mg/Ml Syringe) 1 mg IM .X1 PRN PRN Reason: Hypoglycemia Guaifenesin (Guaifenesin 10 Ml Udc (200mg/10ml)) 20 ml PO Q4H PRN PRN PRN Reason: COUGH Remdesivir 100 mg/ Sodium (Chloride) 250 mls @ 125 mls/hr IV Q24 [facility]; Protocol Stop: 06/29/20 11:59 Last Infusion: 06/26/20 13:36 Dose: Infused Documented by: Insulin Glargine (Insulin Glargine 100 Units/Ml Pen) 20 units SC QHS [facility] Insulin Human Lispro (Insulin Lispro 100 Unit/Ml Insuln.Pen) 0 unit SC ACHS [facility]; Protocol Last Admin: 06/26/20 11:41 Dose: 14 u Documented by: Nitroglycerin (Nitroglycerin (Inpatient Use) 0.4 Mg Tab.Subl) 0.4 mg SUBLINGUAL Q5M PRN PRN Reason: CARDIAC/CHEST PAIN Ondansetron HCl (Ondansetron 4 Mg/2 Ml Vial) 4 mg IV Q8H PRN PRN PRN Reason: NAUSEA/VOMITING Sodium Chloride (0.9% Saline Lock 10 Ml Syringe) 10 - 40 ml IV UD PRN PRN Reason: SALINE FLUSH Assessment/Plan All Active Problems History of type 2 diabetes mellitus (Acute) COVID-19 virus detected (Acute) Pneumonia due to COVID-19 virus (Acute) Acute respiratory failure with hypoxia (Acute) Hyperglycemia due to type 2 diabetes mellitus (Acute) RECOMMENDATIONS: 1. Convalescent serum and remdesivir per infectious disease 2. Continue Decadron. Add Lantus secondary to hyperglycemia 3. Wean oxygen as tolerated 4. Increase activity as tolerated 5. Okay to discontinue antibiotics when culture negative at 48 hours 6. Consider discontinuation of IV fluids to prevent overload IMPRESSIONS: 1. Acute hypoxic respiratory insufficiency secondary to COVID-19 pneumonia Patient does have an extensive smoking history in the past, so underlying COPD cannot be excluded. Patient is currently on IV Decadron, ceftriaxone and azithromycin. Procalcitonin is only slightly elevated. Low clinical suspicion for acute infection, so antibiotics can be discontinued at 48 hours. Wean oxygen as tolerated. Convalescent serum and remdesivir per infectious disease. 2. Uncontrolled diabetes mellitus Patient appeared to be uncontrolled prior to hospitalization, but this will be worsened with steroid therapy. Patient will be initiated on Lantus therapy. Continue to monitor blood sugars closely. 3. Poor pulmonary history/poor medical compliance/obesity Complicates care, management, recovery and prognosis. Patient does have albuterol as needed, but it is unclear if he has COPD or asthma underlying his acute condition. May initiate as needed bronchodilators if patient is noted to have wheezing on exam. Inpatient E&M: [id number] Init Hosp L3
[2020-06-26 16:45] LABS: Bedside Glucose 301 mg/dL (70-110)
--- NOTE | 2020-06-26 16:52 | PCM.HP.ID ---
Problem List (1) Pneumonia due to COVID-19 virus Status: Acute Reason for Consult: covid Consulted by: Dr. Velasquez History of Present Illness: The patient is a 55 year old M presented with 1 week of aches, headache, change in sense of smell, upset stomach, fever, cough, not feeling well. Came to ED, fever, hypoxia. Given dex, azithro, ceftriaxone. Covid (+) 06/21, also sick but not as bad. Started remdesivir last night, feeling better today. Full ROS performed and neg except as noted above. - Medical History Surgical History: reviewed Allergies/Adverse Reactions: Allergies No Known Allergies Allergy (Verified 06/25/20 12:23) Home Medications: Ambulatory Orders Medication Instructions Recorded Albuterol Sulfate [Albuterol 2 puff Q4H PRN PRN 06/25/20 Sulfate HFA] Sitagliptin Phos/Metformin HCl 1 tab DAILY 06/25/20 [Janumet 50-1,000 mg Tablet] - Social History SMOKING STATUS:: Former smoker Vital Signs Temp Pulse Resp BP Pulse Ox 97.9 F 73 18 118/75 93 06/26/20 15:25 06/26/20 15:25 06/26/20 15:25 06/26/20 15:25 06/26/20 15:25 Oxygen Flow Rate (L/min) 5 Oxygen Delivery Method Nasal Cannula Weight: 93.984 kg Body Mass Index (BMI) 30.6 Finger Stick Blood Glucose 179 Microbiology Past 72 Hours 06/26/20 06:45 Gram Stain - Final Sputum, Expectorated/Coughed 06/25/20 21:10 Respiratory Panel (PCR) - Final Mucosa - Nasopharyngeal 06/25/20 20:45 Legionella Antigen - Final Urine, Clean Catch Streptococcus pneumoniae Antigen (M - Final Laboratory Tests Past 24 Hrs 06/25/20 06/26/20 06/26/20 17:51 05:30 05:30 WBC 8.1 RBC 4.93 Hgb 14.7 Hct 46.5 MCV 94.3 H MCH 29.8 MCHC 31.6 L RDW Std Deviation 43.5 RDW Coeff of Antoine 12.4 Plt Count 267 MPV 11.5 Sodium 139 Potassium 4.1 Chloride 105 Carbon Dioxide 26.0 Anion Gap 8 BUN 19 H Creatinine 0.87 Estim Creat Clear Calc 94.81 Est GFR (MDRD) Af Amer 117 Est GFR (MDRD) Non-Af 97 BUN/Creatinine Ratio 21.9 H Glucose 239 H Lactic Acid 1.8 Calcium 7.9 L Total Bilirubin 0.60 AST 30 ALT 53 Alkaline Phosphatase 49 Total Protein 6.6 Albumin 2.7 L Globulin 3.9 Albumin/Globulin Ratio 0.7 L Blood Type 06/26/20 05:30 WBC RBC Hgb Hct MCV MCH MCHC RDW Std Deviation RDW Coeff of Antoine Plt Count MPV Sodium Potassium Chloride Carbon Dioxide Anion Gap BUN Creatinine Estim Creat Clear Calc Est GFR (MDRD) Af Amer Est GFR (MDRD) Non-Af BUN/Creatinine Ratio Glucose Lactic Acid Calcium Total Bilirubin AST ALT Alkaline Phosphatase Total Protein Albumin Globulin Albumin/Globulin Ratio Blood Type A POSITIVE - Other Studies Radiology: [] reviewed Other Studies: [] Route of nutrition/ use of supplements: [] Nutritional Intake: [] IV Site: [] Wilkins Catheter: [] - Physical Exam General: Alert, Oriented x3, Cooperative HEENT: Atraumatic, PERRLA, EOMI Neck: Supple, No Nodes Lungs: Diminished Cardiovascular: Regular rate, Regular Rhythm Abdomen: Bowel Sounds Present, Soft, Non Tender, Non-Distended Extremities: No edema Skin: No rashes IV Site: Peripheral, without redness Musculoskeletal: No Tenderness to Palpation of Joints or Extremities Neurological: Cranial nerves II-XII grossly intact - Assessment/Plan Antibiotics: [] Assessment/Plan: [] Active and Suspected Problems History of type 2 diabetes mellitus (Acute) COVID-19 virus detected (Acute) Pneumonia due to COVID-19 virus (Acute) Acute respiratory failure with hypoxia (Acute) Hyperglycemia due to type 2 diabetes mellitus (Acute) covid with hypoxia - PCT neg, UAg neg, d-dimer 1, lactate elevated. Improved today, I started remdesivir last night. Will change to po dex and stop abx. On intermediate dose lovenox. Reviewed risk/benefit of plasma, he chooses not to do it. Will follow, thank you
[2020-06-26 21:26] LABS: Bedside Glucose 355 mg/dL (70-110)
[2020-06-27] VITALS (9 sets, daily range): BP systolic 113–150; BP diastolic 76–94; PULSE 58–78; RESP 18–20; TEMP 36.3–36.6; O2SAT 92–95
[2020-06-27 05:52] LABS: Hematocrit 44.6 % (40-54); Hemoglobin 14.3 g/dL (13.0-16.5); Mean Corp Hgb Conc 32.1 g/dL (32-36); Mean Corpuscular Hgb 30.2 pg (27.0-32.0); Mean Corpuscular Volume 94.3 fL (80-94); Mean Platelet Vol. 11.5 fl (6.2-12.0); Platelet Count 309 K/mm3 (150-450); RBC Distribution Width CV 12.4 % (11.6-14.6); RBC Distribution Width SD 43.1 fl (35.1-43.9); Red Blood Count 4.73 M/mm3 (4.6-6.2); White Blood Count 10.3 K/mm3 (4.4-11.0)
[2020-06-27] MEDS: Insulin Lispro 100 UNIT/ML INSULN.PEN SC ×4 (06:07→23:20)
[2020-06-27 06:26] LABS: ALB/GLOB Ratio 0.6 RATIO (0.9-2.4); AST(SGOT) 29 U/L (15-37); Alanine Aminotransfer ALT/SGPT 45 U/L (16-61); Albumin, Serum 2.5 g/dL (3.2-5.0); Alkaline Phosphatase 46 U/L (45-117); Anion Gap 7 (5-15); BUN 22 mg/dL (7-18); BUN/Creat Ratio 30.1 RATIO (10-20); Calcium,Total 8.2 mg/dL (8.5-10.1); Chloride 107 mmol/L (98-107); Creatinine, Serum 0.73 mg/dL (0.70-1.30); EST Glomerular Filtration Rate 118 mL/min (>60); Est Glom Filt Rate - Afr Amer 143 mL/min (>60); Estimated Creatinine Clearance 112.99 ml/min; Globulin 4.4 g/dL (2.2-4.2); Glucose 237 mg/dL (74-106); Potassium 3.9 mmol/L (3.5-5.1); Protein, Total 6.9 g/dL (6.4-8.2); Sodium Level 140 mmol/L (136-145)
--- NOTE | 2020-06-27 07:47 | PN_ITS ---
Patient Problems: Active and Suspected Problems History of type 2 diabetes mellitus (Acute) COVID-19 virus detected (Acute) Pneumonia due to COVID-19 virus (Acute) Acute respiratory failure with hypoxia (Acute) Hyperglycemia due to type 2 diabetes mellitus (Acute) Reason for Visit: Follow-up on acute hypoxic respiratory insufficiency/acute COVID-19 pneumonia Subjective: Patient was seen and examined. He feels much improved. Remains on 5 L of oxygen. Denies any fever or chills. Objective: Physical exam: General: Alert, Oriented x3, Cooperative, No apparent distress, on 5 L of oxygen HEENT: Atraumatic, PERRLA, EOMI, Normocephalic Oral: Dry Mucosa Neck: Supple, No JVD, Negative Carotid Bruits Lungs: - - Diminished breath sounds bibasilarly. No wheezes or crackles. 2 L of oxygen. Cardiovascular: Normal S1, Normal S2, No murmurs, Tachycardic Abdomen: Bowel Sounds Present, Soft, Non Tender Extremities: No edema, Capillary Refill Less than 3 Seconds Skin: No rashes, No breakdown Musculoskeletal: No Tenderness to Palpation of Joints or Extremities Lymphatic: No Cervical, Supraclavicular, or Inguinal Adenopathy Neurological: Cranial nerves II-XII grossly intact, Neuro grossly intact, Motor Exam 5/5 strength throughout Psych/Mental Status: Normal Affect, Appropriate, Alert and oriented to time, place, person, mood and affect Vitals/I&O's: Vital Signs Temp Pulse Resp BP Pulse Ox 97.4 F L 64 18 150/94 H 95 06/27/20 03:14 06/27/20 03:14 06/27/20 03:14 06/27/20 03:14 06/27/20 07:40 Oxygen Flow Rate (L/min) 5 Oxygen Delivery Method Nasal Cannula Weight: 93.984 kg Body Mass Index (BMI) 30.6 Finger Stick Blood Glucose 179 Intake and Output for Last 24 Hours 06/25/20 06/26/20 06/27/20 23:59 23:59 23:59 Intake Total 1197.5 / 1197.5 2152.5 / 2152.5 500 / 500 Output Total 1100 / 1100 Balance 1197.5 / 1197.5 1052.5 / 1052.5 500 / 500 Microbiology Past 72 Hours 06/26/20 06:45 Sputum, Expectorated/Coughed Gram Stain - Final 06/25/20 21:10 Mucosa - Nasopharyngeal Respiratory Panel (PCR) - Final 06/25/20 20:45 Urine, Clean Catch Legionella Antigen - Final 06/25/20 20:45 Urine, Clean Catch Streptococcus pneumoniae Antigen (M - Final Laboratory Results 06/26/20 11:03: POC Glucose 369 H 06/26/20 16:24: POC Glucose 301 H 06/26/20 20:57: POC Glucose 355 H 06/27/20 05:19: WBC 10.3, RBC 4.73, Hgb 14.3, Hct 44.6, MCV 94.3 H, MCH 30.2, MCHC 32.1, RDW Std Deviation 43.1, RDW Coeff of Antoine 12.4, Plt Count 309, MPV 11.5 06/27/20 05:19: Sodium 140, Potassium 3.9, Chloride 107, Carbon Dioxide 26.0, Anion Gap 7, BUN 22 H, Creatinine 0.73, Estim Creat Clear Calc 112.99, Est GFR (MDRD) Af Amer 143, Est GFR (MDRD) Non-Af 118, BUN/Creatinine Ratio 30.1 H, Glucose 237 H, Calcium 8.2 L, Total Bilirubin 0.40, AST 29, ALT 45, Alkaline Phosphatase 46, Total Protein 6.9, Albumin 2.5 L, Globulin 4.4 H, Albumin/Globulin Ratio 0.6 L Current Medications Acetaminophen (Acetaminophen 325 Mg Tablet) 650 mg PO Q6H PRN PRN PRN Reason: Pain Score 1-10/Temp > 100.7 F Dexamethasone (Dexamethasone 4 Mg Tablet) 6 mg PO DAILY@0800 [facility] Stop: 07/04/20 08:01 Dextrose (Dextrose 50%-Water 25 Gm/50 Ml Disp.Syrin) 0 gm IV X1 PRN; Protocol PRN Reason: Hypoglycemia Enoxaparin Sodium (Enoxaparin 40 Mg/0.4 Ml Syringe) 40 mg SC BID [facility] Last Admin: 06/26/20 21:08 Dose: 40 mg Documented by: Famotidine (Famotidine 20 Mg Tablet) 20 mg PO BID [facility] Last Admin: 06/26/20 21:08 Dose: 20 mg Documented by: Glucagon (Glucagon 1 Mg/Ml Syringe) 1 mg IM .X1 PRN PRN Reason: Hypoglycemia Guaifenesin (Guaifenesin 10 Ml Udc (200mg/10ml)) 20 ml PO Q4H PRN PRN PRN Reason: COUGH Remdesivir 100 mg/ Sodium (Chloride) 250 mls @ 125 mls/hr IV Q24 [facility]; Protocol Stop: 06/29/20 11:59 Last Infusion: 06/26/20 13:36 Dose: Infused Documented by: Insulin Glargine (Insulin Glargine 100 Units/Ml Pen) 20 units SC QHS [facility] Last Admin: 06/26/20 21:07 Dose: 20 u Documented by: Insulin Human Lispro (Insulin Lispro 100 Unit/Ml Insuln.Pen) 0 unit SC ACHS [facility]; Protocol Last Admin: 06/27/20 06:07 Dose: 6 u Documented by: Nitroglycerin (Nitroglycerin (Inpatient Use) 0.4 Mg Tab.Subl) 0.4 mg SUBLINGUAL Q5M PRN PRN Reason: CARDIAC/CHEST PAIN Ondansetron HCl (Ondansetron 4 Mg/2 Ml Vial) 4 mg IV Q8H PRN PRN PRN Reason: NAUSEA/VOMITING Sodium Chloride (0.9% Saline Lock 10 Ml Syringe) 10 - 40 ml IV UD PRN PRN Reason: SALINE FLUSH STROKE Vital Signs/Narrative: Vital Signs Pulse Ox 06/27/20 07:40 95 Medical Necessity - Tobacco Use Smoking Status: Former smoker Tobacco Use: Cigarettes Assessment/Plan All Active Problems History of type 2 diabetes mellitus (Acute) COVID-19 virus detected (Acute) Pneumonia due to COVID-19 virus (Acute) Acute respiratory failure with hypoxia (Acute) Hyperglycemia due to type 2 diabetes mellitus (Acute) 1. Acute hypoxic respiratory insufficiency secondary to COVID-19 pneumonia Patient is on 5 L of oxygen, CTA of the chest is negative for acute PE; showed groundglass opacity. Continue with breathing treatments, PO steroids, encourage use of incentive spirometer. Wean off oxygen for SPO2 more than 94% 2. Severe sepsis secondary to acute COVID-19 pneumonia with hypoxia, present on admission, worsening Sputum cultures are pending. Respiratory panel is negative. Urine Legionella and streptococcal antigen negative. Patient is currently on p.o. dexamethasone and remdesivir ID and pulmonary following 3. Type II DM, blood sugars are uncontrolled secondary to steroids Off Janumet, will continue on Lantus 20 units BID, continue with blood glucose checks with insulin sliding scale 4. Malnutrition, severe, dietitian consulted, on supplements 5. DVT prophylaxis Lovenox subcu Inpatient E&M: 01583 Subs Hosp L2
[2020-06-27] MEDS: dexAMETHasone 4 MG Tablet 6 MG PO (08:08)
[2020-06-27] MEDS: Enoxaparin 40 MG/0.4 ML Syringe SC ×2 (08:09→23:24)
[2020-06-27] MEDS: Famotidine 20 MG Tablet PO ×2 (08:09→23:25)
[2020-06-27 10:01] LABS: Bedside Glucose 229 mg/dL (70-110)
[2020-06-27 12:50] LABS: Bedside Glucose 364 mg/dL (70-110)
--- NOTE | 2020-06-27 15:20 | PN_ITS ---
Patient Problems: Active and Suspected Problems History of type 2 diabetes mellitus (Acute) COVID-19 virus detected (Acute) Pneumonia due to COVID-19 virus (Acute) Acute respiratory failure with hypoxia (Acute) Hyperglycemia due to type 2 diabetes mellitus (Acute) Subjective: Patient did well overnight. Patient overall feels subjectively unchanged compared to previous. Patient states he feels better with supplemental oxygen in place. Patient is not reporting any chest pain. Patient has had some hyperglycemia overnight. - Physical Exam Vitals/I&O's: Vital Signs Temp Pulse Resp BP Pulse Ox 36.6 C 73 20 H 118/76 93 06/27/20 14:00 06/27/20 14:00 06/27/20 14:00 06/27/20 14:00 06/27/20 14:00 Oxygen Flow Rate (L/min) 5 Oxygen Delivery Method Nasal Cannula Weight: 93.984 kg Body Mass Index (BMI) 30.6 Finger Stick Blood Glucose 179 Intake and Output for Last 24 Hours 06/25/20 06/26/20 06/27/20 23:59 23:59 23:59 Intake Total 1197.5 / 1197.5 2152.5 / 2152.5 1230 / 1230 Output Total 1100 / 1100 Balance 1197.5 / 1197.5 1052.5 / 1052.5 1230 / 1230 General: Alert, Oriented x3, Cooperative, No apparent distress, Well developed, Well nourished, - - No conversational dyspnea. HEENT: Atraumatic, PERRLA, EOMI, Normocephalic, - - Supplemental oxygen in place. Oral: Moist Mucosa, No Gingival or Mucosal Lesions/ Ulcerations Neck: Supple, No Nodes, Trachea Midline, JVD, Right - 1 to 2 cm Lungs: No rhonchi, No wheeze, No rales, Diminished, - - Symmetric expansion. No dullness to percussion. Cardiovascular: Regular rate, Regular Rhythm, Normal S1, Normal S2, No murmurs, No rub noted, No Gallop Abdomen: Bowel Sounds Present, Soft, Non Tender, Non-Distended, Obese Extremities: No clubbing, No cyanosis, No edema, Capillary Refill Less than 3 Seconds Skin: No rashes, No breakdown Musculoskeletal: No Tenderness to Palpation of Joints or Extremities Lymphatic: No Cervical, Supraclavicular, or Inguinal Adenopathy Neurological: Cranial nerves II-XII grossly intact, Neuro grossly intact, Motor Exam 5/5 strength throughout Psych/Mental Status: Alert and oriented to time, place, person, mood and affect Microbiology Past 72 Hours 06/26/20 06:45 Sputum, Expectorated/Coughed Gram Stain - Final 06/26/20 06:45 Sputum, Expectorated/Coughed Respiratory Culture - Preliminary Beta hemolytic organism 06/25/20 21:10 Mucosa - Nasopharyngeal Respiratory Panel (PCR) - Final 06/25/20 20:45 Urine, Clean Catch Legionella Antigen - Final 06/25/20 20:45 Urine, Clean Catch Streptococcus pneumoniae Antigen (M - Final Laboratory Results 06/26/20 16:24: POC Glucose 301 H 06/26/20 20:57: POC Glucose 355 H 06/27/20 05:19: WBC 10.3, RBC 4.73, Hgb 14.3, Hct 44.6, MCV 94.3 H, MCH 30.2, MCHC 32.1, RDW Std Deviation 43.1, RDW Coeff of Antoine 12.4, Plt Count 309, MPV 11.5 06/27/20 05:19: Sodium 140, Potassium 3.9, Chloride 107, Carbon Dioxide 26.0, Anion Gap 7, BUN 22 H, Creatinine 0.73, Estim Creat Clear Calc 112.99, Est GFR (MDRD) Af Amer 143, Est GFR (MDRD) Non-Af 118, BUN/Creatinine Ratio 30.1 H, Glucose 237 H, Calcium 8.2 L, Total Bilirubin 0.40, AST 29, ALT 45, Alkaline Phosphatase 46, Total Protein 6.9, Albumin 2.5 L, Globulin 4.4 H, Albumin/Globulin Ratio 0.6 L 06/27/20 06:04: POC Glucose 229 H 06/27/20 11:28: POC Glucose 364 H Current Medications Acetaminophen (Acetaminophen 325 Mg Tablet) 650 mg PO Q6H PRN PRN PRN Reason: Pain Score 1-10/Temp > 100.7 F Dexamethasone (Dexamethasone 4 Mg Tablet) 6 mg PO DAILY [facility] Stop: 07/04/20 10:01 Dextrose (Dextrose 50%-Water 25 Gm/50 Ml Disp.Syrin) 0 gm IV X1 PRN; Protocol PRN Reason: Hypoglycemia Enoxaparin Sodium (Enoxaparin 40 Mg/0.4 Ml Syringe) 40 mg SC BID [facility] Last Admin: 06/27/20 08:09 Dose: 40 mg Documented by: Famotidine (Famotidine 20 Mg Tablet) 20 mg PO BID [facility] Last Admin: 06/27/20 08:09 Dose: 20 mg Documented by: Glucagon (Glucagon 1 Mg/Ml Syringe) 1 mg IM .X1 PRN PRN Reason: Hypoglycemia Guaifenesin (Guaifenesin 10 Ml Udc (200mg/10ml)) 20 ml PO Q4H PRN PRN PRN Reason: COUGH Remdesivir 100 mg/ Sodium (Chloride) 250 mls @ 125 mls/hr IV Q24 [facility]; Protocol Stop: 06/29/20 11:59 Last Infusion: 06/27/20 13:32 Dose: Infused Documented by: Insulin Glargine (Insulin Glargine 100 Units/Ml Pen) 20 units SC BID [facility] Last Admin: 06/27/20 11:37 Dose: 20 units Documented by: Insulin Human Lispro (Insulin Lispro 100 Unit/Ml Insuln.Pen) 0 unit SC ACHS [facility]; Protocol Last Admin: 06/27/20 11:38 Dose: 12 u Documented by: Nitroglycerin (Nitroglycerin (Inpatient Use) 0.4 Mg Tab.Subl) 0.4 mg SUBLINGUAL Q5M PRN PRN Reason: CARDIAC/CHEST PAIN Ondansetron HCl (Ondansetron 4 Mg/2 Ml Vial) 4 mg IV Q8H PRN PRN PRN Reason: NAUSEA/VOMITING Sodium Chloride (0.9% Saline Lock 10 Ml Syringe) 10 - 40 ml IV UD PRN PRN Reason: SALINE FLUSH Medical Necessity - Tobacco Use Smoking Status: Former smoker Tobacco Use: Cigarettes Assessment/Plan All Active Problems History of type 2 diabetes mellitus (Acute) COVID-19 virus detected (Acute) Pneumonia due to COVID-19 virus (Acute) Acute respiratory failure with hypoxia (Acute) Hyperglycemia due to type 2 diabetes mellitus (Acute) RECOMMENDATIONS: 1. Convalescent serum and remdesivir per infectious disease 2. Continue Decadron. Increase Lantus secondary to hyperglycemia 3. Wean oxygen as tolerated 4. Increase activity as tolerated 5. Continue to monitor off of antibiotics pending sputum results 6. Possible intermittent diuretic administration pending fluid status IMPRESSIONS: 1. Acute hypoxic respiratory insufficiency secondary to COVID-19 pneumonia Patient does have an extensive smoking history in the past, so underlying COPD cannot be excluded. Patient is currently on IV Decadron, ceftriaxone and azithromycin. Procalcitonin is only slightly elevated. Patient currently off of antibiotics. Sputum is growing minimal growth. Await species and sensitivities. Patient is currently afebrile with no significant leukocytosis. Continue to wean oxygen as tolerated. We will have to watch fluid status closely as patient may require as needed Lasix. Patient may have an element of diuresis secondary to hyperglycemia at this point. 2. Uncontrolled diabetes mellitus Patient appeared to be uncontrolled prior to hospitalization, but this will be worsened with steroid therapy. Patient will be increased on Lantus therapy. Continue to monitor blood sugars closely. 3. Poor pulmonary history/poor medical compliance/obesity Complicates care, management, recovery and prognosis. Patient does have albuterol as needed, but it is unclear if he has COPD or asthma underlying his acute condition. May initiate as needed bronchodilators if patient is noted to have wheezing on exam. Inpatient E&M: [id number] Subs Hosp L2
--- NOTE | 2020-06-27 16:42 | NURSING ---
O2 DECREASED TO 4L NC
[2020-06-27 17:26] LABS: Bedside Glucose 397 mg/dL (70-110)
[2020-06-27] MEDS: 0.9% Saline Lock 10 ML Syringe IV (23:25)
[2020-06-28] VITALS (10 sets, daily range): BP systolic 118–146; BP diastolic 73–81; PULSE 53–68; RESP 18–20; TEMP 36.2–36.5; O2SAT 91–93
[2020-06-28 03:31] LABS: Bedside Glucose 304 mg/dL (70-110)
[2020-06-28 06:13] LABS: Hematocrit 43.1 % (40-54); Hemoglobin 13.6 g/dL (13.0-16.5); Mean Corp Hgb Conc 31.6 g/dL (32-36); Mean Corpuscular Hgb 29.4 pg (27.0-32.0); Mean Corpuscular Volume 93.3 fL (80-94); Mean Platelet Vol. 11.5 fl (6.2-12.0); Platelet Count 325 K/mm3 (150-450); RBC Distribution Width CV 12.2 % (11.6-14.6); RBC Distribution Width SD 42.1 fl (35.1-43.9); Red Blood Count 4.62 M/mm3 (4.6-6.2); White Blood Count 8.8 K/mm3 (4.4-11.0)
[2020-06-28 06:43] LABS: ALB/GLOB Ratio 0.6 RATIO (0.9-2.4); AST(SGOT) 29 U/L (15-37); Alanine Aminotransfer ALT/SGPT 44 U/L (16-61); Albumin, Serum 2.4 g/dL (3.2-5.0); Alkaline Phosphatase 47 U/L (45-117); Anion Gap 6 (5-15); BUN 21 mg/dL (7-18); Calcium,Total 8.2 mg/dL (8.5-10.1); Chloride 105 mmol/L (98-107); Creatinine, Serum 0.72 mg/dL (0.70-1.30); EST Glomerular Filtration Rate 119 mL/min (>60); Est Glom Filt Rate - Afr Amer 144 mL/min (>60); Estimated Creatinine Clearance 114.56 ml/min; Globulin 4.1 g/dL (2.2-4.2); Glucose 221 mg/dL (74-106); Potassium 3.6 mmol/L (3.5-5.1); Protein, Total 6.5 g/dL (6.4-8.2); Sodium Level 140 mmol/L (136-145)
[2020-06-28 07:21] LABS: Bedside Glucose 216 mg/dL (70-110)
[2020-06-28] MEDS: Insulin Lispro 100 UNIT/ML INSULN.PEN SC ×4 (07:22→21:07)
--- NOTE | 2020-06-28 07:25 | PCM.PN.HOSP ---
Patient Problems: Active and Suspected Problems History of type 2 diabetes mellitus (Acute) COVID-19 virus detected (Acute) Pneumonia due to COVID-19 virus (Acute) Acute respiratory failure with hypoxia (Acute) Hyperglycemia due to type 2 diabetes mellitus (Acute) Reason for Visit: Follow-up on acute hypoxic respiratory insufficiency/acute COVID-19 pneumonia Subjective: Patient was seen and examined. He is on 4 L of oxygen. He feels improved. Denies any fever or chills. Objective: Physical exam: General: Alert, Oriented x3, Cooperative, No apparent distress, on 4 L of oxygen HEENT: Atraumatic, PERRLA, EOMI, Normocephalic Oral: Dry Mucosa Neck: Supple, No JVD, Negative Carotid Bruits Lungs: - - Diminished breath sounds bibasilarly Cardiovascular: Normal S1, Normal S2, No murmurs, Tachycardic Abdomen: Bowel Sounds Present, Soft, Non Tender Extremities: No edema Skin: No rashes, No breakdown Musculoskeletal: No Tenderness to Palpation of Joints or Extremities Lymphatic: No Cervical, Supraclavicular, or Inguinal Adenopathy Neurological: Cranial nerves II-XII grossly intact, Neuro grossly intact, Motor Exam 5/5 strength throughout Psych/Mental Status: Normal Affect, Appropriate, Alert and oriented to time, place, person, mood and affect Vitals/I&O's: Vital Signs Temp Pulse Resp BP Pulse Ox 97.5 F L 57 L 20 H 119/78 91 06/28/20 07:05 06/28/20 07:05 06/28/20 07:05 06/28/20 07:05 06/28/20 07:05 Oxygen Flow Rate (L/min) 4 Oxygen Delivery Method Nasal Cannula Weight: 93.984 kg Body Mass Index (BMI) 30.6 Finger Stick Blood Glucose 179 Intake and Output for Last 24 Hours 06/26/20 06/27/20 06/28/20 23:59 23:59 23:59 Intake Total 2152.5 / 2152.5 1730 / 1930 200 / 200 Output Total 1100 / 1100 Balance 1052.5 / 1052.5 1730 / 1930 200 / 200 Microbiology Past 72 Hours 06/26/20 06:45 Sputum, Expectorated/Coughed Gram Stain - Final 06/26/20 06:45 Sputum, Expectorated/Coughed Respiratory Culture - Preliminary Beta hemolytic organism 06/25/20 21:10 Mucosa - Nasopharyngeal Respiratory Panel (PCR) - Final 06/25/20 20:45 Urine, Clean Catch Legionella Antigen - Final 06/25/20 20:45 Urine, Clean Catch Streptococcus pneumoniae Antigen (M - Final Laboratory Results 06/27/20 06:04: POC Glucose 229 H 06/27/20 11:28: POC Glucose 364 H 06/27/20 16:35: POC Glucose 397 H 06/27/20 23:15: POC Glucose 304 H 06/28/20 04:36: WBC 8.8, RBC 4.62, Hgb 13.6, Hct 43.1, MCV 93.3, MCH 29.4, MCHC 31.6 L, RDW Std Deviation 42.1, RDW Coeff of Antoine 12.2, Plt Count 325, MPV 11.5 06/28/20 04:36: Sodium 140, Potassium 3.6, Chloride 105, Carbon Dioxide 29.0, Anion Gap 6, BUN 21 H, Creatinine 0.72, Estim Creat Clear Calc 114.56, Est GFR (MDRD) Af Amer 144, Est GFR (MDRD) Non-Af 119, BUN/Creatinine Ratio 29.0 H, Glucose 221 H, Calcium 8.2 L, Total Bilirubin 0.40, AST 29, ALT 44, Alkaline Phosphatase 47, Total Protein 6.5, Albumin 2.4 L, Globulin 4.1, Albumin/Globulin Ratio 0.6 L 06/28/20 07:16: POC Glucose 216 H Current Medications Acetaminophen (Acetaminophen 325 Mg Tablet) 650 mg PO Q6H PRN PRN PRN Reason: Pain Score 1-10/Temp > 100.7 F Dexamethasone (Dexamethasone 4 Mg Tablet) 6 mg PO DAILY [facility] Stop: 07/04/20 10:01 Dextrose (Dextrose 50%-Water 25 Gm/50 Ml Disp.Syrin) 0 gm IV X1 PRN; Protocol PRN Reason: Hypoglycemia Enoxaparin Sodium (Enoxaparin 40 Mg/0.4 Ml Syringe) 40 mg SC BID [facility] Last Admin: 06/27/20 23:24 Dose: 40 mg Documented by: Famotidine (Famotidine 20 Mg Tablet) 20 mg PO BID [facility] Last Admin: 06/27/20 23:25 Dose: 20 mg Documented by: Glucagon (Glucagon 1 Mg/Ml Syringe) 1 mg IM .X1 PRN PRN Reason: Hypoglycemia Guaifenesin (Guaifenesin 10 Ml Udc (200mg/10ml)) 20 ml PO Q4H PRN PRN PRN Reason: COUGH Remdesivir 100 mg/ Sodium (Chloride) 250 mls @ 125 mls/hr IV Q24 [facility]; Protocol Stop: 06/29/20 11:59 Last Infusion: 06/27/20 13:32 Dose: Infused Documented by: Insulin Glargine (Insulin Glargine 100 Units/Ml Pen) 20 units SC BID [facility] Last Admin: 06/27/20 23:23 Dose: 20 units Documented by: Insulin Human Lispro (Insulin Lispro 100 Unit/Ml Insuln.Pen) 0 unit SC ACHS [facility]; Protocol Last Admin: 06/28/20 07:22 Dose: 6 units Documented by: Nitroglycerin (Nitroglycerin (Inpatient Use) 0.4 Mg Tab.Subl) 0.4 mg SUBLINGUAL Q5M PRN PRN Reason: CARDIAC/CHEST PAIN Ondansetron HCl (Ondansetron 4 Mg/2 Ml Vial) 4 mg IV Q8H PRN PRN PRN Reason: NAUSEA/VOMITING Sodium Chloride (0.9% Saline Lock 10 Ml Syringe) 10 - 40 ml IV UD PRN PRN Reason: SALINE FLUSH Last Admin: 06/27/20 23:25 Dose: 10 ml Documented by: STROKE Vital Signs/Narrative: Vital Signs Temp Pulse Resp BP Pulse Ox 06/28/20 07:05 97.5 F L 57 L 20 H 119/78 91 06/28/20 03:44 18 06/28/20 03:36 97.5 F L 60 18 135/81 H 92 Medical Necessity - Tobacco Use Smoking Status: Former smoker Tobacco Use: Cigarettes Assessment/Plan All Active Problems History of type 2 diabetes mellitus (Acute) COVID-19 virus detected (Acute) Pneumonia due to COVID-19 virus (Acute) Acute respiratory failure with hypoxia (Acute) Hyperglycemia due to type 2 diabetes mellitus (Acute) 1. Acute hypoxic respiratory insufficiency secondary to COVID-19 pneumonia, minimally improved Patient is on 4 L of oxygen, CTA of the chest is negative for acute PE; showed groundglass opacity. Continue with breathing treatments, PO steroids, encourage use of incentive spirometer. Wean off oxygen for SPO2 more than 94% 2. Severe sepsis secondary to acute COVID-19 pneumonia with hypoxia, present on admission, worsening Sputum cultures are pending. Respiratory panel is negative. Urine Legionella and streptococcal antigen negative. Patient is currently on p.o. dexamethasone and remdesivir ID and pulmonary following 3. Type II DM, blood sugars are slightly uncontrolled secondary to steroids Off Janumet, will continue on Lantus 30 units BID, continue with blood glucose checks with insulin sliding scale 4. Malnutrition, severe, dietitian consulted, on supplements 5. DVT prophylaxis Lovenox subcu Inpatient E&M: [id number] Subs Hosp L2
[2020-06-28] MEDS: dexAMETHasone 4 MG Tablet 6 MG PO (08:30)
[2020-06-28] MEDS: Enoxaparin 40 MG/0.4 ML Syringe SC ×2 (08:31→21:08)
[2020-06-28] MEDS: Famotidine 20 MG Tablet PO ×2 (08:32→21:09)
--- NOTE | 2020-06-28 11:44 | NURSING ---
O2 DECREASED TO 3L NC - WILL MONITOR
[2020-06-28 12:21] LABS: Bedside Glucose 328 mg/dL (70-110)
--- NOTE | 2020-06-28 13:51 | PCM.PN.PUL ---
Patient Problems: Active and Suspected Problems History of type 2 diabetes mellitus (Acute) COVID-19 virus detected (Acute) Pneumonia due to COVID-19 virus (Acute) Acute respiratory failure with hypoxia (Acute) Hyperglycemia due to type 2 diabetes mellitus (Acute) Subjective: Patient did well overnight. Patient overall states he feels stronger compared to yesterday. Patient is still having intermittent nonproductive cough. Patient is denying any current chest pain. - Physical Exam Vitals/I&O's: Vital Signs Temp Pulse Resp BP Pulse Ox 36.2 C L 62 18 118/73 92 06/28/20 11:43 06/28/20 11:43 06/28/20 11:43 06/28/20 11:43 06/28/20 11:43 Oxygen Flow Rate (L/min) 4 Oxygen Delivery Method Nasal Cannula Weight: 93.984 kg Body Mass Index (BMI) 30.6 Finger Stick Blood Glucose 179 Intake and Output for Last 24 Hours 06/26/20 06/27/20 06/28/20 23:59 23:59 23:59 Intake Total 2152.5 / 2152.5 1730 / 1930 680 / 680 Output Total 1100 / 1100 Balance 1052.5 / 1052.5 1730 / 1930 680 / 680 General: Alert, Oriented x3, Cooperative, No apparent distress, Well developed, Well nourished, - - Improved conversational dyspnea. Obese. HEENT: Atraumatic, PERRLA, EOMI, Normocephalic, - - No scleral icterus or injection noted Oral: Moist Mucosa, No Gingival or Mucosal Lesions/ Ulcerations Neck: Supple, No JVD, No Nodes, Trachea Midline Lungs: No rhonchi, No wheeze, No rales, Diminished, - - Symmetric expansion. No dullness to percussion. Cardiovascular: Regular rate, Regular Rhythm, Normal S1, Normal S2, No murmurs, No rub noted, No Gallop Abdomen: Bowel Sounds Present, Soft, Non Tender, Non-Distended, Obese Extremities: No clubbing, No cyanosis, No edema, Capillary Refill Less than 3 Seconds Skin: No rashes, No breakdown Musculoskeletal: No Tenderness to Palpation of Joints or Extremities Lymphatic: No Cervical, Supraclavicular, or Inguinal Adenopathy Neurological: Cranial nerves II-XII grossly intact, Neuro grossly intact, Motor Exam 5/5 strength throughout Psych/Mental Status: Alert and oriented to time, place, person, mood and affect Microbiology Past 72 Hours 06/26/20 06:45 Sputum, Expectorated/Coughed Gram Stain - Final 06/26/20 06:45 Sputum, Expectorated/Coughed Respiratory Culture - Preliminary Appears to be normal respiratory silvestre. Further studies to follow. 06/25/20 21:10 Mucosa - Nasopharyngeal Respiratory Panel (PCR) - Final 06/25/20 20:45 Urine, Clean Catch Legionella Antigen - Final 06/25/20 20:45 Urine, Clean Catch Streptococcus pneumoniae Antigen (M - Final Laboratory Results 06/27/20 16:35: POC Glucose 397 H 06/27/20 23:15: POC Glucose 304 H 06/28/20 04:36: WBC 8.8, RBC 4.62, Hgb 13.6, Hct 43.1, MCV 93.3, MCH 29.4, MCHC 31.6 L, RDW Std Deviation 42.1, RDW Coeff of Antoine 12.2, Plt Count 325, MPV 11.5 06/28/20 04:36: Sodium 140, Potassium 3.6, Chloride 105, Carbon Dioxide 29.0, Anion Gap 6, BUN 21 H, Creatinine 0.72, Estim Creat Clear Calc 114.56, Est GFR (MDRD) Af Amer 144, Est GFR (MDRD) Non-Af 119, BUN/Creatinine Ratio 29.0 H, Glucose 221 H, Calcium 8.2 L, Total Bilirubin 0.40, AST 29, ALT 44, Alkaline Phosphatase 47, Total Protein 6.5, Albumin 2.4 L, Globulin 4.1, Albumin/Globulin Ratio 0.6 L 06/28/20 07:16: POC Glucose 216 H 06/28/20 11:28: POC Glucose 328 H Current Medications Acetaminophen (Acetaminophen 325 Mg Tablet) 650 mg PO Q6H PRN PRN PRN Reason: Pain Score 1-10/Temp > 100.7 F Dexamethasone (Dexamethasone 4 Mg Tablet) 6 mg PO DAILY [facility] Stop: 07/04/20 10:01 Last Admin: 06/28/20 08:30 Dose: 6 mg Documented by: Dextrose (Dextrose 50%-Water 25 Gm/50 Ml Disp.Syrin) 0 gm IV X1 PRN; Protocol PRN Reason: Hypoglycemia Enoxaparin Sodium (Enoxaparin 40 Mg/0.4 Ml Syringe) 40 mg SC BID [facility] Last Admin: 06/28/20 08:31 Dose: 40 mg Documented by: Famotidine (Famotidine 20 Mg Tablet) 20 mg PO BID [facility] Last Admin: 06/28/20 08:32 Dose: 20 mg Documented by: Glucagon (Glucagon 1 Mg/Ml Syringe) 1 mg IM .X1 PRN PRN Reason: Hypoglycemia Guaifenesin (Guaifenesin 10 Ml Udc (200mg/10ml)) 20 ml PO Q4H PRN PRN PRN Reason: COUGH Remdesivir 100 mg/ Sodium (Chloride) 250 mls @ 125 mls/hr IV Q24 [facility]; Protocol Stop: 06/29/20 11:59 Last Admin: 06/28/20 11:32 Dose: 125 mls/hr Documented by: Insulin Glargine (Insulin Glargine 100 Units/Ml Pen) 30 units SC BID [facility] Insulin Human Lispro (Insulin Lispro 100 Unit/Ml Insuln.Pen) 0 unit SC ACHS [facility]; Protocol Last Admin: 06/28/20 11:33 Dose: 12 units Documented by: Nitroglycerin (Nitroglycerin (Inpatient Use) 0.4 Mg Tab.Subl) 0.4 mg SUBLINGUAL Q5M PRN PRN Reason: CARDIAC/CHEST PAIN Ondansetron HCl (Ondansetron 4 Mg/2 Ml Vial) 4 mg IV Q8H PRN PRN PRN Reason: NAUSEA/VOMITING Sodium Chloride (0.9% Saline Lock 10 Ml Syringe) 10 - 40 ml IV UD PRN PRN Reason: SALINE FLUSH Last Admin: 06/27/20 23:25 Dose: 10 ml Documented by: Medical Necessity - Tobacco Use Smoking Status: Former smoker Tobacco Use: Cigarettes Assessment/Plan All Active Problems History of type 2 diabetes mellitus (Acute) COVID-19 virus detected (Acute) Pneumonia due to COVID-19 virus (Acute) Acute respiratory failure with hypoxia (Acute) Hyperglycemia due to type 2 diabetes mellitus (Acute) RECOMMENDATIONS: 1. Convalescent serum and remdesivir per infectious disease 2. Continue Decadron. Continue Lantus secondary to hyperglycemia 3. Wean oxygen as tolerated 4. Increase activity as tolerated 5. Continue to monitor off of antibiotics pending sputum results 6. Advised to get a pulse oximeter for home 7. Potential discharge in the next 24 to 48 hours IMPRESSIONS: 1. Acute hypoxic respiratory insufficiency secondary to COVID-19 pneumonia Patient does have an extensive smoking history in the past, so underlying COPD cannot be excluded. Patient is currently on IV Decadron. Procalcitonin is only slightly elevated. Patient currently off of antibiotics. Sputum is growing minimal growth of normal silvestre. Patient is currently afebrile with no significant leukocytosis. Continue to wean oxygen as tolerated. We will have to watch fluid status closely as patient may require as needed Lasix. Patient may have an element of diuresis secondary to hyperglycemia at this point. If patient continues to improve, possibly discharge tomorrow. Patient was advised to order a pulse oximeter for monitoring as supplemental oxygen on discharge is expected. Patient will likely follow-up in our office 4 weeks after discharge for complete pulmonary function test and for evaluation of cessation of oxygen. Patient tolerating remdesivir well. 2. Uncontrolled diabetes mellitus Patient appeared to be uncontrolled prior to hospitalization, but this will be worsened with steroid therapy. Patient will be increased on Lantus therapy. Continue to monitor blood sugars closely. 3. Poor pulmonary history/poor medical compliance/obesity Complicates care, management, recovery and prognosis. Patient does have albuterol as needed, but it is unclear if he has COPD or asthma underlying his acute condition. May initiate as needed bronchodilators if patient is noted to have wheezing on exam. Inpatient E&M: [id number] [facility] Hosp L2
--- NOTE | 2020-06-28 16:08 | PN.ID_ITS ---
Patient Problems: Active and Suspected Problems History of type 2 diabetes mellitus (Acute) COVID-19 virus detected (Acute) Pneumonia due to COVID-19 virus (Acute) Acute respiratory failure with hypoxia (Acute) Hyperglycemia due to type 2 diabetes mellitus (Acute) Subjective: Says feeling 100% better but not back to baseline. No fever, no n/v/d. - Physical Exam Vitals/I&O's: Vital Signs Temp Pulse Resp BP Pulse Ox 97.2 F L 62 18 118/73 92 06/28/20 11:43 06/28/20 11:43 06/28/20 15:58 06/28/20 11:43 06/28/20 11:43 Oxygen Flow Rate (L/min) 3 Oxygen Delivery Method Nasal Cannula Weight: 93.984 kg Body Mass Index (BMI) 30.6 Finger Stick Blood Glucose 179 Intake and Output for Last 24 Hours 06/26/20 06/27/20 06/28/20 23:59 23:59 23:59 Intake Total 2152.5 / 2152.5 1730 / 1930 930 / 930 Output Total 1100 / 1100 Balance 1052.5 / 1052.5 1730 / 1930 930 / 930 General: Alert, Cooperative, No apparent distress Lungs: Clear to auscultation, Normal air movement Cardiovascular: Regular rate, Regular Rhythm Abdomen: Soft, Non Tender, Non-Distended Skin: No rashes Microbiology Past 72 Hours 06/26/20 06:45 Sputum, Expectorated/Coughed Gram Stain - Final 06/26/20 06:45 Sputum, Expectorated/Coughed Respiratory Culture - Preliminary Appears to be normal respiratory silvestre. Further studies to follow. 06/25/20 21:10 Mucosa - Nasopharyngeal Respiratory Panel (PCR) - Final 06/25/20 20:45 Urine, Clean Catch Legionella Antigen - Final 06/25/20 20:45 Urine, Clean Catch Streptococcus pneumoniae Antigen (M - Final Laboratory Results 06/27/20 16:35: POC Glucose 397 H 06/27/20 23:15: POC Glucose 304 H 06/28/20 04:36: WBC 8.8, RBC 4.62, Hgb 13.6, Hct 43.1, MCV 93.3, MCH 29.4, MCHC 31.6 L, RDW Std Deviation 42.1, RDW Coeff of Antoine 12.2, Plt Count 325, MPV 11.5 06/28/20 04:36: Sodium 140, Potassium 3.6, Chloride 105, Carbon Dioxide 29.0, Anion Gap 6, BUN 21 H, Creatinine 0.72, Estim Creat Clear Calc 114.56, Est GFR (MDRD) Af Amer 144, Est GFR (MDRD) Non-Af 119, BUN/Creatinine Ratio 29.0 H, Glucose 221 H, Calcium 8.2 L, Total Bilirubin 0.40, AST 29, ALT 44, Alkaline Phosphatase 47, Total Protein 6.5, Albumin 2.4 L, Globulin 4.1, Albumin/Globulin Ratio 0.6 L 06/28/20 07:16: POC Glucose 216 H 06/28/20 11:28: POC Glucose 328 H Current Medications Acetaminophen (Acetaminophen 325 Mg Tablet) 650 mg PO Q6H PRN PRN PRN Reason: Pain Score 1-10/Temp > 100.7 F Dexamethasone (Dexamethasone 4 Mg Tablet) 6 mg PO DAILY [facility] Stop: 07/04/20 10:01 Last Admin: 06/28/20 08:30 Dose: 6 mg Documented by: Dextrose (Dextrose 50%-Water 25 Gm/50 Ml Disp.Syrin) 0 gm IV X1 PRN; Protocol PRN Reason: Hypoglycemia Enoxaparin Sodium (Enoxaparin 40 Mg/0.4 Ml Syringe) 40 mg SC BID [facility] Last Admin: 06/28/20 08:31 Dose: 40 mg Documented by: Famotidine (Famotidine 20 Mg Tablet) 20 mg PO BID [facility] Last Admin: 06/28/20 08:32 Dose: 20 mg Documented by: Glucagon (Glucagon 1 Mg/Ml Syringe) 1 mg IM .X1 PRN PRN Reason: Hypoglycemia Guaifenesin (Guaifenesin 10 Ml Udc (200mg/10ml)) 20 ml PO Q4H PRN PRN PRN Reason: COUGH Remdesivir 100 mg/ Sodium (Chloride) 250 mls @ 125 mls/hr IV Q24 [facility]; Protocol Stop: 06/29/20 11:59 Last Infusion: 06/28/20 13:32 Dose: Infused Documented by: Insulin Glargine (Insulin Glargine 100 Units/Ml Pen) 30 units SC BID [facility] Insulin Human Lispro (Insulin Lispro 100 Unit/Ml Insuln.Pen) 0 unit SC ACHS [facility]; Protocol Last Admin: 06/28/20 11:33 Dose: 12 units Documented by: Nitroglycerin (Nitroglycerin (Inpatient Use) 0.4 Mg Tab.Subl) 0.4 mg SUBLINGUAL Q5M PRN PRN Reason: CARDIAC/CHEST PAIN Ondansetron HCl (Ondansetron 4 Mg/2 Ml Vial) 4 mg IV Q8H PRN PRN PRN Reason: NAUSEA/VOMITING Sodium Chloride (0.9% Saline Lock 10 Ml Syringe) 10 - 40 ml IV UD PRN PRN Reason: SALINE FLUSH Last Admin: 06/27/20 23:25 Dose: 10 ml Documented by: Medical Necessity - Tobacco Use Smoking Status: Former smoker Tobacco Use: Cigarettes Route of nutrition/ use of supplements: [] Nutritional Intake: [] IV Site: [] Wilkins Catheter: [] - Assessment/Plan Antibiotics: [] Assessment/Plan: [] Active and Suspected Problems History of type 2 diabetes mellitus (Acute) COVID-19 virus detected (Acute) Pneumonia due to COVID-19 virus (Acute) Acute respiratory failure with hypoxia (Acute) Hyperglycemia due to type 2 diabetes mellitus (Acute) covid with hypoxia - PCT neg, UAg neg, d-dimer 1, lactate elevated. Much improved on dex, remdesivir, intermediate dose lovenox. Will follow
[2020-06-28 17:36] LABS: Bedside Glucose 351 mg/dL (70-110)
[2020-06-28] MEDS: 0.9% Saline Lock 10 ML Syringe IV (21:06)
[2020-06-28 22:20] LABS: Bedside Glucose 336 mg/dL (70-110)
[2020-06-29 03:23] VITALS: BP 144/85; PULSE 65; RESP 18; TEMP 36.3; O2SAT 96
[2020-06-29 05:40] LABS: Hemoglobin 11.5 g/dL (13.0-16.5); Mean Corp Hgb Conc 31.1 g/dL (32-36); Mean Corpuscular Volume 96.6 fL (80-94); Mean Platelet Vol. 11.2 fl (6.2-12.0); Platelet Count 386 K/mm3 (150-450); RBC Distribution Width CV 12.2 % (11.6-14.6); RBC Distribution Width SD 42.9 fl (35.1-43.9); Red Blood Count 3.83 M/mm3 (4.6-6.2); White Blood Count 10.8 K/mm3 (4.4-11.0)
[2020-06-29 06:07] LABS: ALB/GLOB Ratio 0.6 RATIO (0.9-2.4); AST(SGOT) 38 U/L (15-37); Alanine Aminotransfer ALT/SGPT 53 U/L (16-61); Albumin, Serum 2.4 g/dL (3.2-5.0); Alkaline Phosphatase 46 U/L (45-117); Anion Gap 4 (5-15); BUN 22 mg/dL (7-18); BUN/Creat Ratio 28.8 RATIO (10-20); Calcium,Total 8.2 mg/dL (8.5-10.1); Chloride 106 mmol/L (98-107); Creatinine, Serum 0.76 mg/dL (0.70-1.30); EST Glomerular Filtration Rate 112 mL/min (>60); Est Glom Filt Rate - Afr Amer 135 mL/min (>60); Estimated Creatinine Clearance 108.53 ml/min; Globulin 4.3 g/dL (2.2-4.2); Glucose 201 mg/dL (74-106); Potassium 3.8 mmol/L (3.5-5.1); Protein, Total 6.7 g/dL (6.4-8.2); Sodium Level 139 mmol/L (136-145)
[2020-06-29 06:41] VITALS: BP 134/82; PULSE 58; RESP 18; TEMP 36.4; O2SAT 94
[2020-06-29] MEDS: Insulin Lispro 100 UNIT/ML INSULN.PEN SC ×2 (06:45→11:26)
[2020-06-29 07:00] VITALS: O2SAT 94
[2020-06-29 08:00] LABS: Bedside Glucose 188 mg/dL (70-110)
[2020-06-29] MEDS: Enoxaparin 40 MG/0.4 ML Syringe SC (09:49)
[2020-06-29] MEDS: dexAMETHasone 4 MG Tablet 6 MG PO (09:49)
[2020-06-29] MEDS: Famotidine 20 MG Tablet PO (09:49)
[2020-06-29 09:52] VITALS: BP 109/61; PULSE 71; RESP 16; TEMP 36.3; O2SAT 94
[2020-06-29 09:56] VITALS: O2SAT 94
--- NOTE | 2020-06-29 10:33 | PCM.PN.PUL ---
Patient Problems: Active and Suspected Problems History of type 2 diabetes mellitus (Acute) COVID-19 virus detected (Acute) Pneumonia due to COVID-19 virus (Acute) Acute respiratory failure with hypoxia (Acute) Hyperglycemia due to type 2 diabetes mellitus (Acute) Subjective: Patient is doing well overnight. Patient was found off of supplemental oxygen eating breakfast and feeling comfortable. Patient states he has ordered a pulse oximeter in preparation for possible discharge. - Physical Exam Vitals/I&O's: Vital Signs Temp Pulse Resp BP Pulse Ox 36.3 C L 71 16 109/61 94 06/29/20 09:52 06/29/20 09:52 06/29/20 09:52 06/29/20 09:52 06/29/20 09:56 Oxygen Flow Rate (L/min) 3 Oxygen Delivery Method Room Air Weight: 93.984 kg Body Mass Index (BMI) 30.6 Finger Stick Blood Glucose 179 Intake and Output for Last 24 Hours 06/27/20 06/28/20 06/29/20 23:59 23:59 23:59 Intake Total 1729 Balance 1729 General: Alert, Oriented x3, Cooperative, No apparent distress, Well developed, Well nourished, - - No conversational dyspnea. HEENT: Atraumatic, PERRLA, EOMI, Normocephalic, - - No scleral icterus or injection noted Oral: Moist Mucosa, No Gingival or Mucosal Lesions/ Ulcerations Neck: Supple, No JVD, No Nodes, Trachea Midline Lungs: Clear to auscultation, Normal air movement, No rhonchi, No wheeze, No rales, - - Symmetric expansion. Cardiovascular: Regular rate, Regular Rhythm, Normal S1, Normal S2, No murmurs, No rub noted, No Gallop Abdomen: Bowel Sounds Present, Soft, Non Tender, Non-Distended, Obese Extremities: No clubbing, No cyanosis, No edema Skin: No rashes, No breakdown Musculoskeletal: No Tenderness to Palpation of Joints or Extremities Lymphatic: No Cervical, Supraclavicular, or Inguinal Adenopathy Neurological: Cranial nerves II-XII grossly intact, Neuro grossly intact, Motor Exam 5/5 strength throughout Psych/Mental Status: Alert and oriented to time, place, person, mood and affect Microbiology Past 72 Hours 06/26/20 06:45 Sputum, Expectorated/Coughed Gram Stain - Final 06/26/20 06:45 Sputum, Expectorated/Coughed Respiratory Culture - Final Streptococcus group C Mixed Laura Laboratory Results 06/28/20 11:28: POC Glucose 328 H 06/28/20 16:47: POC Glucose 351 H 06/28/20 20:58: POC Glucose 336 H 06/29/20 04:54: WBC 10.8, RBC 3.83 L, Hgb 11.5 L, Hct 37.0 L, MCV 96.6 H, MCH 30.0, MCHC 31.1 L, RDW Std Deviation 42.9, RDW Coeff of Antoine 12.2, Plt Count 386, MPV 11.2 06/29/20 04:54: Sodium 139, Potassium 3.8, Chloride 106, Carbon Dioxide 29.0, Anion Gap 4 L, BUN 22 H, Creatinine 0.76, Estim Creat Clear Calc 108.53, Est GFR (MDRD) Af Amer 135, Est GFR (MDRD) Non-Af 112, BUN/Creatinine Ratio 28.8 H, Glucose 201 H, Calcium 8.2 L, Total Bilirubin 0.40, AST 38 H, ALT 53, Alkaline Phosphatase 46, Total Protein 6.7, Albumin 2.4 L, Globulin 4.3 H, Albumin/Globulin Ratio 0.6 L 06/29/20 06:40: POC Glucose 188 H Current Medications Acetaminophen (Acetaminophen 325 Mg Tablet) 650 mg PO Q6H PRN PRN PRN Reason: Pain Score 1-10/Temp > 100.7 F Dexamethasone (Dexamethasone 4 Mg Tablet) 6 mg PO DAILY [facility] Stop: 07/04/20 10:01 Last Admin: 06/29/20 09:49 Dose: 6 mg Documented by: Dextrose (Dextrose 50%-Water 25 Gm/50 Ml Disp.Syrin) 0 gm IV X1 PRN; Protocol PRN Reason: Hypoglycemia Enoxaparin Sodium (Enoxaparin 40 Mg/0.4 Ml Syringe) 40 mg SC BID [facility] Last Admin: 06/29/20 09:49 Dose: 40 mg Documented by: Famotidine (Famotidine 20 Mg Tablet) 20 mg PO BID [facility] Last Admin: 06/29/20 09:49 Dose: 20 mg Documented by: Glucagon (Glucagon 1 Mg/Ml Syringe) 1 mg IM .X1 PRN PRN Reason: Hypoglycemia Guaifenesin (Guaifenesin 10 Ml Udc (200mg/10ml)) 20 ml PO Q4H PRN PRN PRN Reason: COUGH Remdesivir 100 mg/ Sodium (Chloride) 250 mls @ 125 mls/hr IV Q24 [facility]; Protocol Stop: 06/29/20 11:59 Last Admin: 06/29/20 10:00 Dose: 125 mls/hr Documented by: Insulin Glargine (Insulin Glargine 100 Units/Ml Pen) 30 units SC BID [facility] Last Admin: 06/29/20 10:01 Dose: 30 u Documented by: Insulin Human Lispro (Insulin Lispro 100 Unit/Ml Insuln.Pen) 0 unit SC ACHS [facility]; Protocol Last Admin: 06/29/20 06:45 Dose: 3 units Documented by: Nitroglycerin (Nitroglycerin (Inpatient Use) 0.4 Mg Tab.Subl) 0.4 mg SUBLINGUAL Q5M PRN PRN Reason: CARDIAC/CHEST PAIN Ondansetron HCl (Ondansetron 4 Mg/2 Ml Vial) 4 mg IV Q8H PRN PRN PRN Reason: NAUSEA/VOMITING Sodium Chloride (0.9% Saline Lock 10 Ml Syringe) 10 - 40 ml IV UD PRN PRN Reason: SALINE FLUSH Last Admin: 06/28/20 21:06 Dose: 10 ml Documented by: Medical Necessity - Tobacco Use Smoking Status: Former smoker Tobacco Use: Cigarettes Assessment/Plan All Active Problems History of type 2 diabetes mellitus (Acute) COVID-19 virus detected (Acute) Pneumonia due to COVID-19 virus (Acute) Acute respiratory failure with hypoxia (Acute) Hyperglycemia due to type 2 diabetes mellitus (Acute) RECOMMENDATIONS: 1. Convalescent serum and remdesivir per infectious disease 2. Continue Decadron. Continue Lantus secondary to hyperglycemia with Decadron 3. Wean oxygen as tolerated 4. Walking oximetry prior to discharge 5. Advised to get a pulse oximeter for home 7. Follow-up in pulmonary office 4 weeks after discharge if supplemental oxygen is required IMPRESSIONS: 1. Acute hypoxic respiratory insufficiency secondary to COVID-19 pneumonia Patient does have an extensive smoking history in the past, so underlying COPD cannot be excluded. Patient is currently on IV Decadron. Procalcitonin is only slightly elevated. Patient currently off of antibiotics. Sputum is growing minimal growth of normal laura. Patient is currently afebrile with no significant leukocytosis. Continue to wean oxygen as tolerated. We will have to watch fluid status closely as patient may require as needed Lasix. Patient was advised to order a pulse oximeter for monitoring as supplemental oxygen on discharge is expected. Patient will likely follow-up in our office 4 weeks after discharge for complete pulmonary function test and for evaluation of cessation of oxygen. Patient tolerating remdesivir well. If patient is not requiring supplemental oxygen, could defer to PCP on evaluation with pulmonary referral if needed 2. Uncontrolled diabetes mellitus Patient appeared to be uncontrolled prior to hospitalization, but this will be worsened with steroid therapy. Consider Lantus coverage while on steroids. Continue to monitor blood sugars closely. 3. Poor pulmonary history/poor medical compliance/obesity Complicates care, management, recovery and prognosis. Patient does have albuterol as needed, but it is unclear if he has COPD or asthma underlying his acute condition. May initiate as needed bronchodilators only if patient is noted to have wheezing on exam. Inpatient E&M: 06890 Subs Hosp L2
[2020-06-29 10:57] VITALS: O2SAT 94
--- NOTE | 2020-06-29 11:47 | PCM.DC ---
- Discharge Diagnoses Current Active Problems: Current Active and Chronic Problems History of type 2 diabetes mellitus (Acute) COVID-19 virus detected (Acute) Pneumonia due to COVID-19 virus (Acute) Acute respiratory failure with hypoxia (Acute) Hyperglycemia due to type 2 diabetes mellitus (Acute) You will use the following diet at home:: Calorie/Carbohydrate Controlled (specify 1200, 1400, etc) - 1800 calories, Cardiac Your food should be the consistency of: Regular Your liquids should be the consistency of: Regular/Thin Discharge Activity: Return to Normal Activity Additional Instructions: Continue to use your incentive spirometer. Continue to remain active and eat healthy. Let your doctor know if you develop fever >101.3F or have progressive worsening shortness of breath. Follow-up with your primary care doctor. Take note of your new medications. Allergies/Adverse Reactions: Allergies No Known Allergies Allergy (Verified 06/25/20 12:23) Medications to take at Discharge Albuterol Sulfate [Albuterol Sulfate HFA] 2 puff Q4H PRN PRN 06/25/20 Sitagliptin Phos/Metformin HCl [Janumet 50-1,000 mg Tablet] 1 tab DAILY 06/25/20 Acetaminophen [Tylenol Tablet] 650 mg PO Q6H PRN PRN tablet 06/29/20 Aspirin 81 mg PO DAILY 30 Days #30 tab.chew 06/29/20 Dexamethasone [Decadron] 6 mg PO DAILY 5 Days #5 tab 06/29/20 Guaifenesin [Robitussin] 20 ml PO Q4H PRN PRN 7 Days #1 bottle 06/29/20 Insulin Glargine [Lantus SoloStar Pen] 30 units SC BID #1 pen 06/29/20 The following prescriptions were given: Aspirin 81 mg PO DAILY 30 Days #30 tab.chew Transmission Status: Pending to [facility] Dexamethasone [Decadron] 6 mg PO DAILY 5 Days #5 tab Transmission Status: Pending to [facility] Insulin Glargine [Lantus SoloStar Pen] 30 units SC BID #1 pen Transmission Status: Pending to [facility] Guaifenesin [Robitussin] 20 ml PO Q4H PRN PRN 7 Days #1 bottle PRN Reason: COUGH Transmission Status: Pending to [facility] Orders to be completed after discharge: Glucometer Location: None Selected Primary Care Physician: Ankush Deluna MD [Primary Care Provider] - Please follow up with your Primary Care Physician in: within 1-2 weeks Test Results: Test results from this visit will be discussed in further detail at your follow-up appointment, if applicable. Proposed Discharge Date: 06/29/20
[2020-06-29 12:16] LABS: Bedside Glucose 309 mg/dL (70-110)
--- NOTE | 2020-06-29 12:24 | PCM.DC.SUM ---
Discharge Date and Diagnosis - Problem List Patient Problems: Active and Suspected Problems History of type 2 diabetes mellitus (Acute) COVID-19 virus detected (Acute) Pneumonia due to COVID-19 virus (Acute) Acute respiratory failure with hypoxia (Acute) Hyperglycemia due to type 2 diabetes mellitus (Acute) Date of Admission: 06/25/20 Date of Discharge: 06/29/20 - Primary Discharge Diagnosis Acute Problems: Active Problems Acute hypoxic respiratory insufficiency secondary to COVID-19 pneumonia Severe sepsis secondary to acute COVID-19 pneumonia Hyperglycemia Severe malnutrition - Secondary Discharge Diagnosis Chronic Problems: Type II DM Hospital Course and Treatment Imaging Results: Clinical Impression(s) from Imaging Studies Chest X-Ray 06/25/20 12:28 IMPRESSION: Interstitial pneumonitis in both lungs are nonspecific. They are suspicious for viral pneumonia including Covid-19. Electronically Signed: Eduardo Blankenship MD at 13:10 EST , Service support , Chest CTA 06/25/20 13:49 IMPRESSION: 1. No central or segmental pulmonary embolism. 2. Groundglass commonly reported imaging features of COVID-19 pneumonia are present. Other processes such as influenza pneumonia, organizing pneumonia, drug toxicity and connective tissue disease can cause a similar imaging pattern. Electronically Signed: Nolan Fernandes MD (Brooks) at 15:19 EST , Service support , ID Pulmonology Operations: None Procedures: None Summary of Care Provided: The patient is a 55 year old M with past medical history of type II DM who was admitted on 06/25/20 with shortness of breath, fever and chills as well as myalgias and arthralgias, nausea, vomiting and cough. Patient stated that his symptoms started 10 days prior to admission. He had a COVID-19 PCR done a couple of days prior and received the results a day before admission. His is also positive for COVID-19 infection. Patient was afebrile in the emergency department. His admitting blood work was significant for slightly elevated AST and ALT. He was found to be saturating 94% on 2 L oxygen. CTA of the chest showed groundglass opacities. He was managed on intranasal cannula oxygen. His oxygen peaked at 5 L of oxygen. He was started on dexamethasone, Remdesivir and Lovenox. He was discharged to complete 10 days of dexamethasone. He completed redemonstrated during the hospital stay. He also was discharged on aspirin for 2 weeks. Patient was evaluated for home oxygen and did not qualify. His oxygen saturation stayed at 94% on room air. Patient Problems: Active and Suspected Problems History of type 2 diabetes mellitus (Acute) COVID-19 virus detected (Acute) Pneumonia due to COVID-19 virus (Acute) Acute respiratory failure with hypoxia (Acute) Hyperglycemia due to type 2 diabetes mellitus (Acute) Subjective: On the day of discharge, patient was seen and examined. Denied any new complaints. Objective: Physical exam: General: Alert, Oriented x3, Cooperative, No apparent distress, on room air HEENT: Atraumatic, PERRLA, EOMI, Normocephalic Oral: Moist Mucosa Neck: Supple, No JVD, Negative Carotid Bruits Lungs: - - Diminished breath sounds bibasilarly Cardiovascular: Normal S1, Normal S2, No murmurs, Tachycardic Abdomen: Bowel Sounds Present, Soft, Non Tender Extremities: No edema Skin: No rashes, No breakdown Musculoskeletal: No Tenderness to Palpation of Joints or Extremities Lymphatic: No Cervical, Supraclavicular, or Inguinal Adenopathy Neurological: Cranial nerves II-XII grossly intact, Neuro grossly intact, Motor Exam 5/5 strength throughout Psych/Mental Status: Normal Affect, Appropriate, Alert and oriented to time, place, person, mood and affect - Physical Exam Vitals/I&O's: Vital Signs Temp Pulse Resp BP Pulse Ox 97.4 F L 71 16 109/61 94 06/29/20 09:52 06/29/20 09:52 06/29/20 09:52 06/29/20 09:52 06/29/20 10:57 Oxygen Flow Rate (L/min) 3 Oxygen Delivery Method Room Air Weight: 93.984 kg Body Mass Index (BMI) 30.6 Finger Stick Blood Glucose 179 Intake and Output for Last 24 Hours 06/27/20 06/28/20 06/29/20 23:59 23:59 23:59 Intake Total 1729 / 1829 Balance 1729 / 1829 Microbiology Past 72 Hours 06/26/20 06:45 Sputum, Expectorated/Coughed Gram Stain - Final 06/26/20 06:45 Sputum, Expectorated/Coughed Respiratory Culture - Final Streptococcus group C Mixed Laura Laboratory Results 06/28/20 16:47: POC Glucose 351 H 06/28/20 20:58: POC Glucose 336 H 06/29/20 04:54: WBC 10.8, RBC 3.83 L, Hgb 11.5 L, Hct 37.0 L, MCV 96.6 H, MCH 30.0, MCHC 31.1 L, RDW Std Deviation 42.9, RDW Coeff of Antoine 12.2, Plt Count 386, MPV 11.2 06/29/20 04:54: Sodium 139, Potassium 3.8, Chloride 106, Carbon Dioxide 29.0, Anion Gap 4 L, BUN 22 H, Creatinine 0.76, Estim Creat Clear Calc 108.53, Est GFR (MDRD) Af Amer 135, Est GFR (MDRD) Non-Af 112, BUN/Creatinine Ratio 28.8 H, Glucose 201 H, Calcium 8.2 L, Total Bilirubin 0.40, AST 38 H, ALT 53, Alkaline Phosphatase 46, Total Protein 6.7, Albumin 2.4 L, Globulin 4.3 H, Albumin/Globulin Ratio 0.6 L 06/29/20 06:40: POC Glucose 188 H 06/29/20 11:25: POC Glucose 309 H Current Medications Acetaminophen (Acetaminophen 325 Mg Tablet) 650 mg PO Q6H PRN PRN PRN Reason: Pain Score 1-10/Temp > 100.7 F Dexamethasone (Dexamethasone 4 Mg Tablet) 6 mg PO DAILY [facility] Stop: 07/04/20 10:01 Last Admin: 06/29/20 09:49 Dose: 6 mg Documented by: Dextrose (Dextrose 50%-Water 25 Gm/50 Ml Disp.Syrin) 0 gm IV X1 PRN; Protocol PRN Reason: Hypoglycemia Enoxaparin Sodium (Enoxaparin 40 Mg/0.4 Ml Syringe) 40 mg SC BID [facility] Last Admin: 06/29/20 09:49 Dose: 40 mg Documented by: Famotidine (Famotidine 20 Mg Tablet) 20 mg PO BID [facility] Last Admin: 06/29/20 09:49 Dose: 20 mg Documented by: Glucagon (Glucagon 1 Mg/Ml Syringe) 1 mg IM .X1 PRN PRN Reason: Hypoglycemia Guaifenesin (Guaifenesin 10 Ml Udc (200mg/10ml)) 20 ml PO Q4H PRN PRN PRN Reason: COUGH Insulin Glargine (Insulin Glargine 100 Units/Ml Pen) 30 units SC BID [facility] Last Admin: 06/29/20 10:01 Dose: 30 u Documented by: Insulin Human Lispro (Insulin Lispro 100 Unit/Ml Insuln.Pen) 0 unit SC ACHS [facility]; Protocol Last Admin: 06/29/20 11:26 Dose: 9 units Documented by: Nitroglycerin (Nitroglycerin (Inpatient Use) 0.4 Mg Tab.Subl) 0.4 mg SUBLINGUAL Q5M PRN PRN Reason: CARDIAC/CHEST PAIN Ondansetron HCl (Ondansetron 4 Mg/2 Ml Vial) 4 mg IV Q8H PRN PRN PRN Reason: NAUSEA/VOMITING Sodium Chloride (0.9% Saline Lock 10 Ml Syringe) 10 - 40 ml IV UD PRN PRN Reason: SALINE FLUSH Last Admin: 06/28/20 21:06 Dose: 10 ml Documented by: Discharge Diet: Low fat/ Low Cholesterol, 2000 mg Sodium Diet, Carb Control Diet Discharge Activity: Return to Normal Activity Home Medications: Medications to take at Discharge Albuterol Sulfate [Albuterol Sulfate HFA] 2 puff Q4H PRN PRN 06/25/20 Sitagliptin Phos/Metformin HCl [Janumet 50-1,000 mg Tablet] 1 tab DAILY 06/25/20 Acetaminophen [Tylenol Tablet] 650 mg PO Q6H PRN PRN tab 06/29/20 Aspirin 81 mg PO DAILY 30 Days #30 tab.chew 06/29/20 Dexamethasone [Decadron] 6 mg PO DAILY 5 Days #5 tab 06/29/20 Guaifenesin [Robitussin] 20 ml PO Q4H PRN PRN 7 Days #1 bottle 06/29/20 Insulin Glargine [Lantus SoloStar Pen] 30 units SC BID #1 pen 06/29/20 Following Prescriptions Were Given to Patient: Aspirin 81 mg PO DAILY 30 Days #30 tab.chew Transmission Status: Received by [facility] Dexamethasone [Decadron] 6 mg PO DAILY 5 Days #5 tab Transmission Status: Received by [facility] Insulin Glargine [Lantus SoloStar Pen] 30 units SC BID #1 pen Transmission Status: Received by [facility] Guaifenesin [Robitussin] 20 ml PO Q4H PRN PRN 7 Days #1 bottle PRN Reason: COUGH Transmission Status: Received by [facility] Other Amb Orders: Glucometer Location: None Selected Primary Care Physician: Ankush Deluna MD [Primary Care Provider] - Please follow up with your Primary Care Physician in: within 1-2 weeks Disposition: Home Minutes spent on discharge:: 40 Patient Condition:: Stable Medical Necessity - Tobacco Use Smoking Status: Former smoker Tobacco Use: Cigarettes Meaningful Use Info Meaningful Use Diagnoses (Choose all that apply): None applicable Inpatient E&M: 03299 Disch Hosp
--- NOTE | 2020-07-03 16:28 | CASEMGMT ---
NIKO CACERES Discharge Follow-up Phone Call: SHANKAR: Sammie Strata: 2 Call Date: 07/03/2020 Discharge Date: 06/29/2020 Time of Call: 1620 Admitting Diagnosis: COVID pneumonia, sepsis Discharge follow-up call placed to pt. Pt states he has been doing well and has been weak but has been improving since discharge. Reports his PO to be 92-94%. States he took his last dexamethasone pill today and has a follow-up appointment with his PCP tomorrow (07/04) AM. Pt asked if he would be released to return to work after this appointment. Instructed pt to check with his PCP who will make the final determination on when he can return. Pt states his blood sugars have been elevated in the 300-400 range and after using the insulin they go down to 200-300 range. Pt understood this was from the dexamethasone but also encouraged him to discuss these with his PCP. Pt is outside his quarantine time as he presented 10 days since the beginning of his symptoms. Pt denied any further questions or concerns. Tamie Virgen RN CM
== END 2020-06-29 13:26 | disposition home or self-care (01) | DRG 871 ==
LOC: ED 13:17 → MS2 14:02
PROVIDERS: Internal Medicine Infectious Disease; Admitting Provider Student in an Organized Health Care Education/Training Program; Emergency Provider Emergency Medicine; PCP Family Medicine; Visit Provider Internal Medicine
DX: A41.89 Other specified sepsis (principal); U07.1 COVID-19; J12.89 Other viral pneumonia; E43 Unspecified severe protein-calorie malnutrition; E87.2 Acidosis; J44.0 Chronic obstructive pulmonary disease with (acute) lower respiratory infection; R65.20 Severe sepsis without septic shock; E11.65 Type 2 diabetes mellitus with hyperglycemia
CPT/HCPCS: 36415; 36600; 71045; 71275; 80053; 82550; 82803; 82962; 83036; 83605; 83615; 83880; 84145; 85025; 85027; 85379; 86900; 86901; 87070; 87077; 87205; 87449; 87633; 93005; 97802; 99251; 99285; J7030; J7040; J7050; Q9967; A4216; G0463

== ENCOUNTER 2021-11-16 09:14 | Outpatient (CLI) | payer OTHER, SELFPAY ==
[2021-11-16 10:23] LABS: Absolute Lymphocyte Count 2.05 X10^3/uL (0.83-4.51); Absolute Neutrophil Count 4.2 X10^3/uL (2.0-7.7); Basophil# 0.04 X10^3/uL; Basophil% 0.6 % (0-1); Eosinophil# 0.17 X10^3/uL; Eosinophils% 2.3 % (0-5); Hematocrit 48.6 % (40-54); Hemoglobin 16.1 g/dL (13.0-16.5); Lymphocyte # 2.05 X10^3/ul (0.83-4.51); Lymphocyte % 28.3 % (19-41); Mean Corp Hgb Conc 33.1 g/dL (32-36); Mean Corpuscular Volume 90.7 fL (80-94); Mean Platelet Vol. 11.5 fl (6.2-12.0); Monocyte# 0.69 X10^3/uL; Monocyte% 9.5 % (0-10); NRBC Flagged by Analyzer 0 % (0-5); Neutrophil # 4.24 X10^3/uL (2.7-7.7); Neutrophil % 58.6 % (47-70); Platelet Count 222 K/mm3 (150-450); RBC Distribution Width CV 12.1 % (11.6-14.6); RBC Distribution Width SD 40.7 fl (35.1-43.9); Red Blood Count 5.36 M/mm3 (4.6-6.2); White Blood Count 7.2 K/mm3 (4.4-11.0)
[2021-11-16 10:46] LABS: Microalbumin,Random Urine 60.5 mg/L (NO RANGE EST.); Microalbumin:Creatinine Ratio 44.8 mg/g CRE (<30 mg/g CRE)
[2021-11-16 11:14] LABS: AST(SGOT) 20 U/L (15-37); Alanine Aminotransfer ALT/SGPT 59 U/L (16-61); Albumin, Serum 3.8 g/dL (3.2-5.0); Alkaline Phosphatase 56 U/L (45-117); Anion Gap 4 (5-15); BUN 15 mg/dL (7-18); BUN/Creat Ratio 17.3 RATIO (10-20); Chloride 105 mmol/L (98-107); Cholesterol 185 mg/dL (200); Creatinine, Serum 0.87 mg/dL (0.70-1.30); EST Glomerular Filtration Rate 96 mL/min (>60); Est Glom Filt Rate - Afr Amer 116 mL/min (>60); Globulin 3.9 g/dL (2.2-4.2); Glucose 263 mg/dL (74-106); High Density Lipoprotein 38 mg/dL; Potassium 4.3 mmol/L (3.5-5.1); Protein, Total 7.7 g/dL (6.4-8.2); Sodium Level 138 mmol/L (136-145); Thyroid Stim Hormone (TSH) 2.04 uIU/mL (0.358-3.74); Triglycerides 229 mg/dL; Very Low Density Lipoprotein 46 mg/dL (5-40)
[2021-11-16 11:16] LABS: Hemoglobin A1c 8.3 % (3.8-5.6)
== END 2021-11-16 23:59 | disposition home or self-care (01) ==
LOC: MTLAB 09:15
PROVIDERS: PCP Family Medicine; Referring Provider Family Medicine; Visit Provider Family Medicine
DX: E11.69 Type 2 diabetes mellitus with other specified complication (principal); E04.1 Nontoxic single thyroid nodule
CPT/HCPCS: 36415; 80053; 80061; 82043; 82570; 83036; 84439; 84443; 85025

== ENCOUNTER → 2022-06-28 | Outpatient (CLI) | payer OTHER, SELFPAY ==
[2022-06-28 11:52] LABS: Absolute Lymphocyte Count 2.29 X10^3/uL (0.83-4.51); Absolute Neutrophil Count 4.2 X10^3/uL (2.0-7.7); Basophil# 0.04 X10^3/uL; Basophil% 0.5 % (0-1); Eosinophil# 0.13 X10^3/uL; Eosinophils% 1.8 % (0-5); Hematocrit 50.1 % (40-54); Hemoglobin 16.1 g/dL (13.0-16.5); Lymphocyte # 2.29 X10^3/ul (0.83-4.51); Lymphocyte % 31.2 % (19-41); Mean Corp Hgb Conc 32.1 g/dL (32-36); Mean Corpuscular Hgb 30.1 pg (27.0-32.0); Mean Corpuscular Volume 93.6 fL (80-94); Mean Platelet Vol. 11.8 fl (6.2-12.0); Monocyte# 0.62 X10^3/uL; Monocyte% 8.4 % (0-10); NRBC Flagged by Analyzer 0 % (0-5); Neutrophil # 4.23 X10^3/uL (2.7-7.7); Neutrophil % 57.7 % (47-70); Platelet Count 244 K/mm3 (150-450); RBC Distribution Width CV 12.2 % (11.6-14.6); Red Blood Count 5.35 M/mm3 (4.6-6.2); White Blood Count 7.3 K/mm3 (4.4-11.0)
[2022-06-28 12:26] LABS: Hemoglobin A1c 8.6 % (3.8-5.6)
[2022-06-28 12:33] LABS: AST(SGOT) 28 U/L (15-37); Alanine Aminotransfer ALT/SGPT 58 U/L (16-61); Alkaline Phosphatase 55 U/L (45-117); Anion Gap 8 (5-15); BUN 17 mg/dL (7-18); BUN/Creat Ratio 18.8 RATIO (10-20); Calcium,Total 9.6 mg/dL (8.5-10.1); Chloride 104 mmol/L (98-107); Cholesterol 200 mg/dL (200); Creatinine, Serum 0.91 mg/dL (0.70-1.30); EST Glomerular Filtration Rate 91 mL/min (>60); Est Glom Filt Rate - Afr Amer 111 mL/min (>60); Glucose 189 mg/dL (74-106); High Density Lipoprotein 37 mg/dL; Potassium 3.9 mmol/L (3.5-5.1); Sodium Level 139 mmol/L (136-145); Triglycerides 242 mg/dL; Very Low Density Lipoprotein 48 mg/dL (5-40)
[2022-06-28 12:57] LABS: Microalbumin,Random Urine 27.7 mg/L (NO RANGE EST.); Microalbumin:Creatinine Ratio 37.8 mg/g CRE (<30 mg/g CRE)
== END | disposition home or self-care (01) ==
LOC: MFPLAB 10:36
PROVIDERS: PCP Family Medicine; Referring Provider Family Medicine; Visit Provider Family Medicine
DX: E11.9 Type 2 diabetes mellitus without complications (principal)
CPT/HCPCS: 36415; 80053; 80061; 82043; 82570; 83036; 85025

== ENCOUNTER → 2023-04-18 | Outpatient (CLI) | payer OTHER, SELFPAY ==
[2023-04-18 17:48] LABS: Absolute Lymphocyte Count 2.36 X10^3/uL (0.83-4.51); Absolute Neutrophil Count 4.1 X10^3/uL (2.0-7.7); Basophil# 0.04 X10^3/uL; Basophil% 0.6 % (0-1); Eosinophil# 0.15 X10^3/uL; Eosinophils% 2.1 % (0-5); Hematocrit 48.2 % (40-54); Hemoglobin 16.1 g/dL (13.0-16.5); Lymphocyte # 2.36 X10^3/ul (0.83-4.51); Lymphocyte % 32.5 % (19-41); Mean Corp Hgb Conc 33.4 g/dL (32-36); Mean Corpuscular Volume 92.7 fL (80-94); Monocyte# 0.53 X10^3/uL; Monocyte% 7.3 % (0-10); NRBC Flagged by Analyzer 0 % (0-5); Neutrophil # 4.13 X10^3/uL (2.7-7.7); Neutrophil % 56.8 % (47-70); Platelet Count 215 K/mm3 (150-450); RBC Distribution Width CV 11.9 % (11.6-14.6); RBC Distribution Width SD 40.7 fl (35.1-43.9); White Blood Count 7.3 K/mm3 (4.4-11.0)
[2023-04-18 18:23] LABS: Microalbumin,Random Urine 18.4 mg/L (NO RANGE EST.); Microalbumin:Creatinine Ratio 41.2 mg/g CRE (<30 mg/g CRE)
[2023-04-18 18:50] LABS: ALB/GLOB Ratio 0.9 RATIO (0.9-2.4); AST(SGOT) 19 U/L (15-37); Alanine Aminotransfer ALT/SGPT 52 U/L (16-61); Albumin, Serum 3.7 g/dL (3.2-5.0); Alkaline Phosphatase 66 U/L (45-117); Anion Gap 8 (5-15); BUN 19 mg/dL (7-18); BUN/Creat Ratio 20.6 RATIO (10-20); Calcium,Total 8.9 mg/dL (8.5-10.1); Chloride 103 mmol/L (98-107); Cholesterol 217 mg/dL (200); Creatinine, Serum 0.92 mg/dL (0.70-1.30); EST Glomerular Filtration Rate 89 mL/min (>60); Est Glom Filt Rate - Afr Amer 108 mL/min (>60); Globulin 3.9 g/dL (2.2-4.2); Glucose 302 mg/dL (74-106); High Density Lipoprotein 33 mg/dL; PSA,Total - Annual Screen 0.22 ng/mL (0.00-4.00); Potassium 3.7 mmol/L (3.5-5.1); Protein, Total 7.6 g/dL (6.4-8.2); Sodium Level 134 mmol/L (136-145); Thyroid Stim Hormone (TSH) 1.83 uIU/mL (0.358-3.74); Triglycerides 520 mg/dL
== END | disposition home or self-care (01) ==
LOC: MFPLAB 16:40
PROVIDERS: PCP Family Medicine; Visit Provider Family Medicine
DX: E11.9 Type 2 diabetes mellitus without complications (principal); Z12.5 Encounter for screening for malignant neoplasm of prostate
CPT/HCPCS: 36415; 80053; 80061; 82043; 82570; 83036; 84153; 84443; 85025; G0103

== ENCOUNTER 2023-11-28 18:57 | Emergency (ER) | payer OTHER, SELFPAY ==
[2023-11-28 18:57] VITALS: BP 143/80; PULSE 77; RESP 22; TEMP 35.8
[2023-11-28 19:00] VITALS: BP 143/80; PULSE 77; RESP 22; TEMP 35.8; BMI 30.8
--- NOTE | 2023-11-28 19:14 | CT_ITS ---
STUDY: CT ABDOMEN AND PELVIS WITHOUT CONTRAST REASON FOR EXAM: Male, 58 years old. right flank pain RADIATION DOSAGE (If Supplied By Facility): CTDIvol = ( 14.07 ) mGy, DLP = ( 748.62 ) mGycm TECHNIQUE: Transaxial images were obtained from the dome of the diaphragm to the symphysis pubis without oral contrast, and without intravenous contrast. Sagittal and coronal images were reconstructed. Individualized dose optimization techniques were used for this CT. COMPARISON: None. FINDINGS: Minor atelectasis within the dependent portion of the lungs.. The visualized portions of the heart are within normal limits. Liver is enlarged and fatty infiltrated without mass or bile duct dilatation. Normal gallbladder and extrahepatic biliary system. Normal spleen. Normal pancreas. Normal bilateral adrenal glands. There are 2 tiny nonobstructing renal calculi. There is also mild right hydroureteronephrosis with mild stranding in the perinephric fat secondary to calculus in the distal ureter measuring approximately 4 mm in size and there are 2 simple cortical cyst. There are 3 tiny nonobstructing calculi in left kidney. There is a tiny cortical cyst which will not require additional imaging. Normal visualized stomach. Normal small intestine. Minor diverticular changes of the colon without evidence for acute diverticulitis. The appendix is visualized and appears normal. Atherosclerotic changes of the aorta without evidence for aneurysm. Normal inferior vena cava. Normal retroperitoneum. Poorly distended thick walled bladder likely of no significance Normal abdominal wall. Lumbar spine demonstrates mild spondylosis. CT/Abdomen/Pelvis without Cont IMPRESSION: Bilateral nephrolithiasis. Mild hydroureteronephrosis of the right kidney secondary to calculus in the distal ureter measuring approximately 4 mm. Bilateral renal cysts which will not require additional imaging Electronically Signed: Angel Duque MD at 20:07 EDT ,
--- NOTE | 2023-11-28 19:16 | EDS_ITS ---
HPI <CHLOÉ Antoine - Last Filed: 11/28/23 20:35> History of Present Illness Chief Complaint: Flank Pain Narrative Narrative: 58-year-old male with past medical history of diabetes, kidney stones states he had sudden onset right flank and low back pain around 4 PM. It started more dull but then has become severe and is radiating around to the right lower abdomen and groin. It feels like his prior kidney stones. He has no fever, nausea or vomiting, or urinary symptoms. His kidney stone a few years ago required a ureteral stent with Dr. Reyes. PFSH <CHLOÉ Antoine - Last Filed: 11/28/23 20:35> PFS Home Medications albuterol sulfate 90 mcg/actuation aerosol inhaler 2 puff Q4H PRN PRN Sob &/Or Wheezing 06/25/20 [History Last Taken 06/24/20 01:00] sitagliptin phosphate 50 mg-metformin 1,000 mg tablet 1 tab DAILY diabetes 06/25/20 [History Last Taken 06/11/20 09:00] acetaminophen 325 mg tablet 650 mg (2 x 325 mg) PO Q6H PRN PRN Pain Score 1- 10/Temp > 100.7 F 06/29/20 [Rx Last Taken Unknown] insulin glargine 100 unit/mL (3 mL) subcutaneous pen 30 units (0.3 mL) subcut BID ##1 06/29/20 [Rx Last Taken Unknown] ondansetron 4 mg disintegrating tablet 4 mg PO Q6H PRN nausea and vomiting #12 tabs 11/28/23 [Rx Last Taken Unknown] oxycodone-acetaminophen 5 mg-325 mg tablet (Percocet) 1 tab PO Q6H PRN pain 3 days #12 tabs 11/28/23 [Rx Last Taken Unknown] tamsulosin 0.4 mg capsule (Flomax) 0.4 mg PO DAILY #7 caps 11/28/23 [Rx Last Taken Unknown] Allergy/AdvReac Type Severity Reaction Status Date / Time No Known Allergies Allergy Verified 11/28/23 18:58 Social History Smoking Status: Former smoker ROS <CHLOÉ Antoine - Last Filed: 11/28/23 20:35> ROS ED ROS Narrative Constitutional: Negative for fever, chills, malaise. CVS: Negative for chest pain. Respiratory: Negative for shortness of breath. GI: Positive for abdominal pain. Negative for nausea, vomiting, diarrhea, constipation, melena, hematochezia. : Negative for dysuria, hematuria or frequency. EXAM <CHLOÉ Antoine - Last Filed: 11/28/23 20:35> Physical Exam Narrative Exam Narrative: CONST: Patient sitting in no acute distress. EYES: Normal inspection. NECK: Normal inspection. RESP: No respiratory distress, CTAB. CVS: Regular rate and rhythm, no murmur, no gallop. ABD: Soft with mild right sided abdominal tenderness, no guarding or rebound, nondistended. Back: Normal inspection, no CVA tenderness. SKIN: Color normal, no rash, warm, dry, intact. EXTREMITIES: Normal appearance, no pedal edema. NEURO: Alert and answering questions appropriately. PSYCH: Normal affect. Const Vital Signs: 11/28/23 19:00 11/28/23 18:57 Temperature 96.5 F L 96.5 F L Temperature Source Temporal Temporal Pulse Rate 77 77 Respiratory Rate 22 H 22 H Blood Pressure 143/80 H 143/80 H Blood Pressure Mean 101 101 <Dr. Conchita Ybarra DO - Last Filed: 11/28/23 20:31> Physical Exam Const Vital Signs: 11/28/23 19:00 11/28/23 18:57 Temperature 96.5 F L 96.5 F L Temperature Source Temporal Temporal Pulse Rate 77 77 Respiratory Rate 22 H 22 H Blood Pressure 143/80 H 143/80 H Blood Pressure Mean 101 101 MDM <CHLOÉ Antoine - Last Filed: 11/28/23 20:35> [facility] Narrative Medical decision making narrative: Workup shows a 4 mm obstructive right kidney stone in the distal ureter with mild hydroureteronephrosis. White count is 13.0 but UA is no infection. Renal function is normal with creatinine of 1.27. Glucose is 266 with normal CO2 and anion gap. It looks like that since baseline between 200?300. Patient's pain was adequately treated after Toradol and morphine and is comfortable going home. I prescribed Percocet, Zofran, and Flomax and he was instructed to follow-up with urology. Return precautions discussed. I have personally performed a face to face assessment of the patient and have reviewed the [facility] Note. I performed a substantive portion of the visit including all aspects of the following. My schumacher findings include: History is [patient presents with sudden onset of right flank pain that started at 4 PM. Patient states the pain feels like it starts in his kidney and radiates down to his groin. He does have prior history of kidney stone. Patient has history of diabetes. He currently rates his pain a 10 out of 10. He denies fever. Denies nausea or vomiting. Denies urinary symptoms.] Exam is [HEENT-PERRLA, EOMI. Cranial nerves II through XII grossly intact. TMs clear. Mucous membranes moist. No adenopathy. Cardiovascular-regular rate and rhythm without murmur or ectopy Lungs-clear to auscultation, chest wall stable without crepitus or subcu emphysema Abdomen-normoactive bowel sounds, soft. Patient has tenderness palpation over the right lower quadrant with guarding. He has CVA tenderness on the right. No rebound or rigidity. Extremities-intact ?4, normal range of motion, normal pulses, atraumatic] Medical Decison Making [patient presents with severe flank pain with history of kidney stones. Will medicate with Zofran and morphine as well as Toradol. Will obtain labs and a CT as well as a urine to evaluate for kidney stone or other acute intra-abdominal process.] Other additions or changes: [None] patient had an IV line established. He was medicated with morphine and Toradol and had good pain relief with that. CBC with differential white count 13 with hemoglobin 16 and platelet count of 234. Chemistries unremarkable. Urinalysis without signs of infection. CT flank showed a 4 mm stone distal right ureter. This point will discharge patient to home with pain meds and urine strainers. Will refer to urology for follow-up. Advised to return if worsening pain, fever, vomiting, or condition should worsen anyway. Lab Data Labs: Laboratory Results - last 24 hr 11/28/23 11/28/23 19:20 19:35 WBC 13.0 H RBC 5.58 Hgb 16.6 H Hct 51.6 MCV 92.5 MCH 29.7 MCHC 32.2 RDW Std Deviation 40.2 RDW Coeff of Antoine 11.9 Plt Count 234 MPV 11.5 Immature Gran % (Auto) 0.500 Neut % (Auto) 80.1 H Lymph % (Auto) 13.7 L [place] % (Auto) 4.7 Eos % (Auto) 0.5 Baso % (Auto) 0.5 Absolute Neuts (auto) 10.4 H Absolute Lymphs (auto) 1.78 Nucleated RBC % 0 Sodium 138 Potassium 4.1 Chloride 106 Carbon Dioxide 26.0 Anion Gap 6 BUN 22 H Creatinine 1.27 Estim Creat Clear Calc 71.13 Est GFR (MDRD) Af Amer 74 Est GFR (MDRD) Non-Af 62 BUN/Creatinine Ratio 17.3 Glucose 266 H Calcium 9.4 Urine Color Yellow Urine Clarity Clear Urine pH 5.0 Ur Specific [place] 1.025 Urine Protein 15 H Urine Glucose (UA) 1000 H Urine Ketones 150 A* Urine Occult Blood 10 H Urine Nitrite Negative Urine Bilirubin Negative Urine Urobilinogen Normal Ur Leukocyte Esterase Negative Urine RBC 0 SEEN Urine WBC 0 SEEN Ur Squamous Epith Cells 0-5 SEEN Urine Bacteria 0 SEEN Urine Mucus 0 SEEN Radiography Diagnostic Testing: Clinical Impression(s) from Imaging Studies Abdomen/Pelvis CT 11/28/23 19:14 IMPRESSION: Bilateral nephrolithiasis. Mild hydroureteronephrosis of the right kidney secondary to calculus in the distal ureter measuring approximately 4 mm. Bilateral renal cysts which will not require additional imaging Electronically Signed: Angel Duque MD at 20:07 EDT , <Dr. Conchita Ybarra, DO - Last Filed: 11/28/23 20:31> [facility] Narrative Medical decision making narrative: I have personally performed a face to face assessment of the patient and have reviewed the DAXA Note. I performed a substantive portion of the visit including all aspects of the following. My schumacher findings include: History is [patient presents with sudden onset of right flank pain that started at 4 PM. Patient states the pain feels like it starts in his kidney and radiates down to his groin. He does have prior history of kidney stone. Patient has history of diabetes. He currently rates his pain a 10 out of 10. He denies fever. Denies nausea or vomiting. Denies urinary symptoms.] Exam is [HEENT-PERRLA, EOMI. Cranial nerves II through XII grossly intact. TMs clear. Mucous membranes moist. No adenopathy. Cardiovascular-regular rate and rhythm without murmur or ectopy Lungs-clear to auscultation, chest wall stable without crepitus or subcu emphysema Abdomen-normoactive bowel sounds, soft. Patient has tenderness palpation over the right lower quadrant with guarding. He has CVA tenderness on the right. No rebound or rigidity. Extremities-intact ?4, normal range of motion, normal pulses, atraumatic] Medical Decison Making [patient presents with severe flank pain with history of kidney stones. Will medicate with Zofran and morphine as well as Toradol. Will obtain labs and a CT as well as a urine to evaluate for kidney stone or other acute intra-abdominal process.] Other additions or changes: [None] patient had an IV line established. He was medicated with morphine and Toradol and had good pain relief with that. CBC with differential white count 13 with hemoglobin 16 and platelet count of 234. Chemistries unremarkable. Urinalysis without signs of infection. CT flank showed a 4 mm stone distal right ureter. This point will discharge patient to home with pain meds and urine strainers. Will refer to urology for follow-up. Advised to return if worsening pain, fever, vomiting, or condition should worsen anyway. Lab Data Attestation: I reviewed the patient's lab results. Labs: Laboratory Results - last 24 hr 11/28/23 11/28/23 19:20 19:35 WBC 13.0 H RBC 5.58 Hgb 16.6 H Hct 51.6 MCV 92.5 MCH 29.7 MCHC 32.2 RDW Std Deviation 40.2 RDW Coeff of Antoine 11.9 Plt Count 234 MPV 11.5 Immature Gran % (Auto) 0.500 Neut % (Auto) 80.1 H Lymph % (Auto) 13.7 L [place] % (Auto) 4.7 Eos % (Auto) 0.5 Baso % (Auto) 0.5 Absolute Neuts (auto) 10.4 H Absolute Lymphs (auto) 1.78 Nucleated RBC % 0 Sodium 138 Potassium 4.1 Chloride 106 Carbon Dioxide 26.0 Anion Gap 6 BUN 22 H Creatinine 1.27 Estim Creat Clear Calc 71.13 Est GFR (MDRD) Af Amer 74 Est GFR (MDRD) Non-Af 62 BUN/Creatinine Ratio 17.3 Glucose 266 H Calcium 9.4 Urine Color Yellow Urine Clarity Clear Urine pH 5.0 Ur Specific [place] 1.025 Urine Protein 15 H Urine Glucose (UA) 1000 H Urine Ketones 150 A* Urine Occult Blood 10 H Urine Nitrite Negative Urine Bilirubin Negative Urine Urobilinogen Normal Ur Leukocyte Esterase Negative Urine RBC 0 SEEN Urine WBC 0 SEEN Ur Squamous Epith Cells 0-5 SEEN Urine Bacteria 0 SEEN Urine Mucus 0 SEEN Radiography Diagnostic Testing: Clinical Impression(s) from Imaging Studies Abdomen/Pelvis CT 11/28/23 19:14 IMPRESSION: Bilateral nephrolithiasis. Mild hydroureteronephrosis of the right kidney secondary to calculus in the distal ureter measuring approximately 4 mm. Bilateral renal cysts which will not require additional imaging Electronically Signed: Angel Duque MD at 20:07 EDT , Discharge Plan Triage Chief Complaint: Flank Pain ED Midlevel Provider: Joy Burch ED Provider: Conchita Ybarra Dx/Rx/DC Orders Clinical Impression: Acute right flank pain, Kidney stone on right side Instructions: ED Kidney Stone with Pain Prescriptions: New oxycodone-acetaminophen [Percocet] 5-325 mg tablet 1 tab PO Q6H PRN (Reason: pain) 3 Days Qty: 12 0RF ondansetron 4 mg tablet,disintegrating 4 mg PO Q6H PRN (Reason: nausea and vomiting) Qty: 12 0RF tamsulosin [Flomax] 0.4 mg capsule 0.4 mg PO DAILY Qty: 7 0RF No Action albuterol sulfate 1 PUFF inhaler 2 puff Q4H PRN PRN (Reason: Sob &/Or Wheezing) sitagliptin phos-metformin 1 EACH tablet 1 tab DAILY Patient Comments: TAKE 1 TABLET BY MOUTH TWICE A DAY acetaminophen 325 MG tablet 650 mg PO Q6H PRN PRN (Reason: Pain Score 1-10/Temp > 100.7 F) 0RF insulin glargine 100 UNITS/ML insulin pen 30 units SC BID Qty: 1 0RF Primary Care Provider: Salvatore Rajput Referrals: Jarek Reyes MD [Med Staff - Active Staff] - Ankush Tim MD [Med Staff - Engineering Project Designer] - Activity Restrictions/Additional Instructions: You can also take aleve for additional pain control, 4 mm kidney stone should pass on its own but if symptoms worsen or you develop a fever or inability to urinate please return to the ER. Disposition Disposition: Home, Self Care
[2023-11-28 19:27] LABS: Absolute Lymphocyte Count 1.78 X10^3/uL (0.83-4.51); Absolute Neutrophil Count 10.4 X10^3/uL (2.0-7.7); Basophil# 0.06 X10^3/uL; Basophil% 0.5 % (0-1); Eosinophil# 0.07 X10^3/uL; Eosinophils% 0.5 % (0-5); Hematocrit 51.6 % (40-54); Hemoglobin 16.6 g/dL (13.0-16.5); Lymphocyte # 1.78 X10^3/ul (0.83-4.51); Lymphocyte % 13.7 % (19-41); Mean Corp Hgb Conc 32.2 g/dL (32-36); Mean Corpuscular Hgb 29.7 pg (27.0-32.0); Mean Corpuscular Volume 92.5 fL (80-94); Mean Platelet Vol. 11.5 fl (6.2-12.0); Monocyte# 0.61 X10^3/uL; Monocyte% 4.7 % (0-10); NRBC Flagged by Analyzer 0 % (0-5); Neutrophil # 10.37 X10^3/uL (2.7-7.7); Neutrophil % 80.1 % (47-70); Platelet Count 234 K/mm3 (150-450); RBC Distribution Width CV 11.9 % (11.6-14.6); RBC Distribution Width SD 40.2 fl (35.1-43.9); Red Blood Count 5.58 M/mm3 (4.6-6.2)
[2023-11-28] MEDS: 0.9% Normal Saline (1000mL) 1,000 ML 999 ML IV (19:27)
[2023-11-28] MEDS: Ketorolac 15 MG/ML Vial IV (19:27)
[2023-11-28] MEDS: Ondansetron 4 MG/2 ML Vial IV (19:28)
[2023-11-28] MEDS: Morphine 4 MG/ML Syringe IV (19:28)
[2023-11-28 19:38] LABS: Anion Gap 6 (5-15); BUN 22 mg/dL (7-18); BUN/Creat Ratio 17.3 RATIO (10-20); Calcium,Total 9.4 mg/dL (8.5-10.1); Chloride 106 mmol/L (98-107); Creatinine, Serum 1.27 mg/dL (0.70-1.30); EST Glomerular Filtration Rate 62 mL/min (>60); Est Glom Filt Rate - Afr Amer 74 mL/min (>60); Estimated Creatinine Clearance 71.13 ml/min; Glucose 266 mg/dL (74-106); Potassium 4.1 mmol/L (3.5-5.1); Sodium Level 138 mmol/L (136-145)
[2023-11-28 19:42] LABS: Bacteria 0 SEEN /hpf (None Seen); Mucous, Urine 0 SEEN /hpf (<or=2+); Red Blood Cells-Urine 0 SEEN /hpf (0-5); White Blood Cells 0 SEEN /hpf (0-5)
[2023-11-28 19:47] LABS: Color, Urine Yellow (Yellow); Glucose, Dipstick 1000 mg/dl (Normal); Leukocyte Esterase-Dipstick Negative /ul (Negative); Nitrite-Dipstick Negative (Negative); Occult Blood-Urine 10 /ul (Negative); Protein-Dipstick 15 mg/dl (Negative); Specific Gravity, Urine 1.025 (1.002-1.030); Urine Bilirubin Dipstick Negative (Negative); Urine Clarity Clear (Clear); Urine Urobilinogen Normal (Normal)
[2023-11-28 19:52] LABS: Ketone-Dipstick 150 mg/dl (Negative)
[2023-11-28 19:58] LABS: Squamous Epithelial Cells - UA 0-5 SEEN /hpf (0-5)
[2023-11-28 20:55] VITALS: BP 149/89; PULSE 78; RESP 18; TEMP 36.5; O2SAT 92
== END 2023-11-28 20:56 | disposition home or self-care (01) ==
PROVIDERS: Physician Assistant; Emergency Provider Emergency Medicine; PCP Family Medicine; Visit Provider Emergency Medicine
DX: N13.2 Hydronephrosis with renal and ureteral calculous obstruction (principal); E11.9 Type 2 diabetes mellitus without complications; Z79.4 Long term (current) use of insulin; Z79.899 Other long term (current) drug therapy; Z87.891 Personal history of nicotine dependence; Z87.442 Personal history of urinary calculi
CPT/HCPCS: 74176; 80048; 81001; 85025; 96361; 96374; 96375; 99282; J7030; J2405